=== PATIENT | female | born 1955 | race African-American/Black ===

== ENCOUNTER → 2016-07-17 | Outpatient (CLI) | payer MEDICARE, MEDICAID | LOC: OD 10:42 | PROVIDERS: ATTEND Internal Medicine | DX: D51.9 Vitamin B12 deficiency anemia, unspecified (principal) | CPT/HCPCS: 36415; 82306 ==

== ENCOUNTER 2016-12-12 17:20 | Emergency (ER) | payer MEDICARE, MEDICAID ==
[2016-12-12 17:38] VITALS: BP 137/72
--- NOTE | 2016-12-12 18:21 | ER Document Report ---
HPI - HPI Patient complains to provider of: fall Onset: This afternoon Onset/Duration: Sudden Quality of pain: Achy Pain Level: 3 Context: States that she slipped on algae covered pavement falling on her left hip and shoulder. Patient denies any head injury or loss of consciousness. Associated Symptoms: Other - hip, shoulder pain after fall Exacerbated by: Movement Relieved by: Denies Similar symptoms previously: No Recently seen / treated by doctor: No - ROS ROS below otherwise negative: Yes Systems Reviewed and Negative: Yes All other systems reviewed and negative - NEURO Neurology: DENIES: Headache, Weakness - CARDIOVASCULAR Cardiovascular: DENIES: Chest pain - REPRODUCTIVE Reproductive: DENIES: : - MUSCULOSKELETAL Musculoskeletal: REPORTS: Extremity pain. DENIES: Back Pain, Neck Pain - DERM Skin Color: Normal Skin Problems: None Past Medical History - General Information source: Patient - Social History Smoking Status: Current Some Day Smoker Chew tobacco use (# tins/day): No Frequency of alcohol use: None Drug Abuse: None Occupation: none Lives with: Family Family History: None Patient has suicidal ideation: No Patient has homicidal ideation: No - Past Medical History Cardiac Medical History: Reports: Hx Heart Attack, Hx Hypercholesterolemia, Hx Hypertension Pulmonary Medical History: Reports: Hx Bronchitis Neurological Medical History: Denies: Hx Seizures Endocrine Medical History: Reports: Hx Diabetes Mellitus Type 2 Renal/ Medical History: Denies: Hx Peritoneal Dialysis Musculoskeltal Medical History: Reports Hx Arthritis, Reports Hx Fibromyalgia, Reports Hx Musculoskeletal Deformity, Reports Hx Musculoskeletal Trauma Psychiatric Medical History: Reports: Hx Attention Deficit Hyperactivity Disorder, Hx Depression Traumatic Medical History: Reports: Hx Fractures Past Surgical History: Reports: Hx Appendectomy, Hx Section - x2, Hx Cholecystectomy, Hx Orthopedic Surgery - Bilateral foot surgery - Immunizations Immunizations up to date: Yes Hx Diphtheria, Pertussis, Tetanus Vaccination: Yes Vertical Provider Document - CONSTITUTIONAL Agree With Documented VS: Yes Exam Limitations: No Limitations General Appearance: WD/WN, No Apparent Distress - INFECTION CONTROL TRAVEL OUTSIDE OF THE [place] IN LAST 30 DAYS: No - HEENT HEENT: Atraumatic, Normocephalic - NECK Neck: Normal Inspection, Supple - RESPIRATORY Respiratory: Breath Sounds Normal, No Respiratory Distress O2 Sat by Pulse Oximetry: 100 - CARDIOVASCULAR Cardiovascular: Regular Rate, Regular Rhythm Pulses: Normal: Radial, Posterior tibial, Dorsalis pedis - BACK Back: Normal Inspection. negative: CVA Tenderness-Right, CVA Tenderness-Left Notes: No midline tenderness - MUSCULOSKELETAL/EXTREMETIES Musculoskeletal/Extremeties: MAEW, Tender - Patient with left posterior shoulder joint tenderness, no deformity or dislocation. Patient with left lateral hip tenderness over greater trochanter, deformity or dislocation. - NEURO Level of Consciousness: Awake, Alert, Appropriate Motor/Sensory: No Motor Deficit, No Sensory Deficit - DERM Integumentary: Warm, Dry, No Rash Course - Re-evaluation Re-evalutation: 12/12/16 19:30 Patient crutches, patient states she has some at home. Pt States she is anxious to go home so that she can take her fentanyl patch when she gets there. 12/12/16 19:35 Patient states that her shoulder does not hurt that bad, but her hip does. Pt prefers to use crutches or a walker to assist with walking due to her hip pain. - Vital Signs Vital signs: Temp Pulse Resp BP Pulse Ox 98.5 F 81 16 137/72 H 100 12/12/16 17:37 12/12/16 17:37 12/12/16 17:37 12/12/16 17:37 12/12/16 17:37 - Diagnostic Test Radiology reviewed: Image reviewed, Reports reviewed Discharge - Discharge Clinical Impression: Fall Qualifiers: Encounter type: initial encounter Qualified Code(s): W19.XXXA - Unspecified fall, initial encounter Sprain of shoulder, left Qualifiers: Encounter type: initial encounter Shoulder sprain type: unspecified sprain Qualified Code(s): S43.402A - Unspecified sprain of left shoulder joint, initial encounter Sprain of left hip Qualifiers: Encounter type: initial encounter Qualified Code(s): S73.102A - Unspecified sprain of left hip, initial encounter Condition: Stable Disposition: HOME, SELF-CARE Instructions: Sprain ([facility]), Shoulder Injury ([facility]), Ice & Elevation ([facility]) Additional Instructions: Return immediately for any new or worsening symptoms Followup with your primary care provider, call tomorrow to make a followup appointment Follow-up with orthopedic doctor for any continued pain or problems Prescriptions: Walker [Folding Walker] 1 each MC ASDIR PRN #1 each PRN Reason: Referrals: EDIS ACOSTA MD [Primary Care Provider] - Follow up as needed [facility] [Provider Group] - Follow up as needed
--- NOTE | 2016-12-12 19:25 | RADIOLOGY REPORT (SQ) ---
EXAM DESCRIPTION: SHOULDER LEFT 2 OR MORE VIEWS COMPLETED DATE/TIME: 12/12/2016 6:57 pm REASON FOR STUDY: fall COMPARISON: None. NUMBER OF VIEWS: Three views. TECHNIQUE: Internal rotation, external rotation, and Y view images acquired of the left shoulder. LIMITATIONS: None. FINDINGS: MINERALIZATION: Normal. BONES: No acute fracture or dislocation. No worrisome bone lesions. JOINTS: No dislocation. VISUALIZED LUNGS AND RIBS: No pneumothorax. No rib fracture. SOFT TISSUES: No radiopaque foreign body. OTHER: No other significant finding. IMPRESSION: NEGATIVE STUDY OF THE LEFT SHOULDER. NO RADIOGRAPHIC EVIDENCE OF ACUTE INJURY. TECHNICAL DOCUMENTATION: JOB ID: [id number] [employer]- All Rights Reserved
--- NOTE | 2016-12-12 19:26 | RADIOLOGY REPORT (SQ) ---
EXAM DESCRIPTION: HIP LEFT AP/LATERAL COMPLETED DATE/TIME: 12/12/2016 6:57 pm REASON FOR STUDY: fall COMPARISON: None. NUMBER OF VIEWS: Two views. TECHNIQUE: AP pelvis and additional frog-leg view of the left hip. LIMITATIONS: None. FINDINGS: MINERALIZATION: Normal. LEFT HIP: No fracture or dislocation. No worrisome bone lesions. RIGHT HIP: No fracture or dislocation. No worrisome bone lesions. PUBIS AND ISCHIUM: No fracture. PELVIS: No fracture. SACRUM: No fracture or dislocation. No worrisome bone lesions. LOWER LUMBAR SPINE: No fracture or dislocation. No worrisome bone lesions. No significant disc disea se. SOFT TISSUES: No findings. OTHER: No other significant finding. IMPRESSION: NEGATIVE STUDY OF THE LEFT HIP AND PELVIS. NO RADIOGRAPHIC EVIDENCE OF ACUTE INJURY. TECHNICAL DOCUMENTATION: JOB ID: [id number] [employer]- All Rights Reserved
== END 2016-12-12 19:35 | disposition home or self-care (01) ==
LOC: ER 17:20
DX: S43.402A Unspecified sprain of left shoulder joint, initial encounter (principal); S73.102A Unspecified sprain of left hip, initial encounter; W01.0XXA Fall on same level from slipping, tripping and stumbling without subsequent striking against object, initial encounter; F17.200 Nicotine dependence, unspecified, uncomplicated; I25.2 Old myocardial infarction; I10 Essential (primary) hypertension; E11.9 Type 2 diabetes mellitus without complications
CPT/HCPCS: 99283

== ENCOUNTER → 2016-12-23 | Outpatient (CLI) | payer MEDICARE, MEDICAID ==
[2016-12-23 17:15] LABS: ABSOLUTE EOSINOPHILS # (AUTO) 0.1 10^3/uL (0.0-0.6); ABSOLUTE LYMPHOCYTES (AUTO) 3.8 10^3/uL (0.5-4.7); ABSOLUTE NEUT (AUTO) 5.4 10^3/uL (1.7-8.2); BASOPHILS % (AUTO) 0.2 % (0-2); EOSINOPHILS % (AUTO) 1.2 % (0-6); HEMATOCRIT 46.1 % (36.0-47.0); HEMOGLOBIN 14.9 g/dL (12.0-15.5); HGB HCT DIFFERENCE -1.4; LYMPHOCYTES % (AUTO) 36.4 % (13-45); MEAN CORPUSCULAR HEMOGLOBIN 24.5 pg (27.0-33.4); MEAN CORPUSCULAR HGB CONC 32.3 g/dL (32.0-36.0); MEAN CORPUSCULAR VOLUME 76 fl (80-97); MONOCYTES % (AUTO) 9.6 % (3-13); RED BLOOD COUNT 6.07 10^6/uL (3.72-5.28); RED CELL DISTRIBUTION WIDTH 13.2 % (11.5-14.0); SEGMENTED NEUTROPHILS % (AUTO) 52.6 % (42-78); WHITE BLOOD COUNT 10.3 10^3/uL (4.0-10.5)
[2016-12-23 17:36] LABS: ALANINE AMINOTRANSFERASE 76 U/L (9-52); ALBUMIN 4.4 g/dL (3.5-5.0); ALKALINE PHOSPHATASE 115 U/L (38-126); AMYLASE 57 U/L (30-110); ANION GAP 11 (5-19); ASPARTATE AMINO TRANSFERASE 47 U/L (14-36); BILIRUBIN,DIRECT 0.4 mg/dL (0.0-0.4); BILIRUBIN,TOTAL 0.5 mg/dL (0.2-1.3); BLOOD UREA NITROGEN 19 mg/dL (7-20); CALCIUM 11.3 mg/dL (8.4-10.2); CARBON DIOXIDE 29 mmol/L (22-30); CHLORIDE 98 mmol/L (98-107); CREATININE RESULT 0.47 mg/dL (0.52-1.25); GLUCOSE 82 mg/dL (75-110); POTASSIUM 5.3 mmol/L (3.6-5.0); SODIUM 138.3 mmol/L (137-145)
== END ==
LOC: OD 16:10
PROVIDERS: ATTEND Internal Medicine
DX: R11.10 Vomiting, unspecified (principal); R63.4 Abnormal weight loss; E11.9 Type 2 diabetes mellitus without complications; R10.9 Unspecified abdominal pain; Z79.899 Other long term (current) drug therapy
CPT/HCPCS: 36415; 80053; 82150; 83690; 85025

== ENCOUNTER → 2017-01-02 | Outpatient (CLI) | payer MEDICARE, MEDICAID ==
[2017-01-02 16:55] LABS: CALCIUM 10.2 mg/dL (8.4-10.2); POTASSIUM 3.6 mmol/L (3.6-5.0)
[2017-01-04 19:03] LABS: HEPATITIS C VIRUS AB <0.1 s/co ratio (0.0-0.9)
== END ==
LOC: OD 15:14
PROVIDERS: ATTEND Internal Medicine
DX: E83.52 Hypercalcemia (principal); E87.0 Hyperosmolality and hypernatremia; R74.8 Abnormal levels of other serum enzymes
CPT/HCPCS: 36415; 82310; 84132; 86803; 86804

== ENCOUNTER 2017-04-05 18:53 | Emergency (ER) | payer MEDICARE, MEDICAID ==
[2017-04-05] MEDS ORDERED: HYDROXYZINE HCL INJ 50 MG/1 ML VIAL IM ONE (19:24)
--- NOTE | 2017-04-05 19:25 | ER Document Report ---
ED General - General Chief Complaint: Pelvic Pain Stated Complaint: POSSIBLE INTERNAL SPASMS Time Seen by Provider: 04/05/17 19:15 Notes: Patient is a 61 year old female who presents to the ED complaining of pelvic cramps that she has had on/off for one year due to the fact that she is not sexually active and does not masturbate. She denies any fevers, chills, vaginal discharge, discomfort, pyuria hematuria takes vistaril at home which has relieved her symptoms in the past TRAVEL OUTSIDE OF THE [place] IN LAST 30 DAYS: No - Related Data Allergies/Adverse Reactions: promethazine HCl [From Phenergan] Allergy (Severe, Verified 01/16/16 21:53) Past Medical History - Social History Smoking Status: Current Some Day Smoker Frequency of alcohol use: None Drug Abuse: None Family History: None - Past Medical History Cardiac Medical History: Reports: Hx Heart Attack, Hx Hypercholesterolemia, Hx Hypertension Pulmonary Medical History: Reports: Hx Bronchitis Neurological Medical History: Denies: Hx Seizures Endocrine Medical History: Reports: Hx Diabetes Mellitus Type 2 Renal/ Medical History: Denies: Hx Peritoneal Dialysis Musculoskeltal Medical History: Reports Hx Arthritis, Reports Hx Fibromyalgia, Reports Hx Musculoskeletal Deformity, Reports Hx Musculoskeletal Trauma Psychiatric Medical History: Reports: Hx Attention Deficit Hyperactivity Disorder, Hx Depression Traumatic Medical History: Reports: Hx Fractures Past Surgical History: Reports: Hx Appendectomy, Hx Section - x2, Hx Cholecystectomy, Hx Orthopedic Surgery - Bilateral foot surgery - Immunizations Immunizations up to date: Yes Hx Diphtheria, Pertussis, Tetanus Vaccination: Yes Review of Systems - Review of Systems Constitutional: No symptoms reported Female Genitourinary: See HPI -: Yes All other systems reviewed and negative Physical Exam - Vital signs Vitals: Temp Pulse Resp BP Pulse Ox 98.2 F 112 H 18 152/102 H 100 04/05/17 19:00 04/05/17 19:00 04/05/17 19:00 04/05/17 19:00 04/05/17 19:00 - Notes Notes: PHYSICAL EXAM GENERAL: Alert, interacts well. ABDOMEN: Soft, nondistended, nontender. No guarding, rebound, or rigidity.. Bowel sounds present in all 4 quadrants. FEMALE : Normal external exam. No evidence of lesions, lacerations, bruising or vesicles. Speculum exam normal cervix closed. No evidence of vaginal discharge with odor. No evidence of lesions. No vaginal bleeding. Bimanual exam normal no cervical motion tenderness. No adnexal mass or adnexal tenderness. EXTREMITIES: Moves all 4 extremities spontaneously. No edema, radial and dorsalis pedis pulses 2/4 bilaterally. No cyanosis. NEUROLOGICAL: Alert and oriented x4. Normal speech. PSYCH: Normal affect, normal mood. SKIN: Warm, dry, normal turgor. No rashes or lesions noted. Course - Re-evaluation Re-evalutation: 04/05/17 22:38 Patient is a 61-year-old female who is hemodynamically stable, no acute distress and afebrile. Patient's presentation today consistent with pelvic cramping. Symptoms improved after medications administered at the bedside. Patient denies any pain at this time. Pelvic exam benign. No evidence of pelvic inflammatory disease. Urinalysis clean without any evidence of UTI. Given that patient has had symptoms for 1 year, discussed with her to follow-up with her primary care doctor. Do not feel that any additional lab or imaging studies are required for this chronic complaint. Patient and family agree with plan. - Vital Signs Vital signs: Temp Pulse Resp BP Pulse Ox 98.8 F 100 18 139/75 H 100 04/05/17 22:52 04/05/17 22:52 04/05/17 22:52 04/05/17 22:52 04/05/17 22:52 Discharge - Discharge Clinical Impression: Pelvic pain Condition: Good Disposition: HOME, SELF-CARE Additional Instructions: Given that your symptoms are chronic and have been going on for one year, there is no indication to do additional testing in the ER Please follow up with your primary care doctor
[2017-04-05] MEDS ORDERED: DIAZEPAM INJ 10 MG/2 ML DISP.SYRIN IM ONE (20:17)
[2017-04-05 21:54] LABS: APPEARANCE,URINE CLEAR; BILIRUBIN,URINE NEGATIVE (NEGATIVE); GLUCOSE, URINE NEGATIVE (NEGATIVE); KETONES,URINE NEGATIVE (NEGATIVE); LEUKOCYTE ESTERASE,URINE NEGATIVE (NEGATIVE); NITRITE,URINE NEGATIVE (NEGATIVE); PROTEIN,URINE NEGATIVE (NEGATIVE); URINE SPECIFIC GRAVITY 1.003; UROBILINOGEN,URINE NEGATIVE mg/dL (<2.0)
[2017-04-05 22:54] VITALS: BP 139/75
[2017-04-05 23:54] LABS: CHLAM PCR NOT DETECTED (NOT DETECT)
== END 2017-04-05 22:51 | disposition home or self-care (01) ==
LOC: ER 18:53
DX: R10.2 Pelvic and perineal pain (principal); I10 Essential (primary) hypertension; I25.2 Old myocardial infarction; E11.9 Type 2 diabetes mellitus without complications; Z79.899 Other long term (current) drug therapy; Z88.8 Allergy status to other drugs, medicaments and biological substances; Z90.49 Acquired absence of other specified parts of digestive tract
CPT/HCPCS: 99284; 96372; 87210; 81001; 87491; 87591; J3360; J3490

== ENCOUNTER 2017-05-19 18:52 | Emergency (ER) | payer MEDICARE, MEDICAID ==
[2017-05-19 19:39] VITALS: BP 159/83
== END 2017-05-19 22:20 | disposition left against medical advice (07) ==
LOC: ER 18:52
DX: Z53.9 Procedure and treatment not carried out, unspecified reason (principal); N63.0 Unspecified lump in unspecified breast

== ENCOUNTER 2017-08-23 11:43 | Emergency (ER) | payer OTHER, MEDICARE, MEDICAID ==
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
[2017-08-23 12:58] VITALS: BP 134/78
== END 2017-08-23 12:57 | disposition home or self-care (01) ==
LOC: ER 11:43
DX: T14.8XXA Other injury of unspecified body region, initial encounter (principal); S00.93XA Contusion of unspecified part of head, initial encounter; R51 Headache; M54.2 Cervicalgia; R07.9 Chest pain, unspecified; V49.40XA Driver injured in collision with unspecified motor vehicles in traffic accident, initial encounter; I10 Essential (primary) hypertension; I25.2 Old myocardial infarction; E11.9 Type 2 diabetes mellitus without complications; F17.200 Nicotine dependence, unspecified, uncomplicated; G89.29 Other chronic pain; Z79.891 Long term (current) use of opiate analgesic; Z88.8 Allergy status to other drugs, medicaments and biological substances
CPT/HCPCS: 99283

== ENCOUNTER → 2017-09-12 | Outpatient (CLI) | payer MEDICARE, MEDICAID ==
[2017-09-12 10:20] LABS: ABSOLUTE EOSINOPHILS # (AUTO) 0.2 10^3/uL (0.0-0.6); ABSOLUTE LYMPHOCYTES (AUTO) 2.6 10^3/uL (0.5-4.7); ABSOLUTE MONOCYTES (AUTO) 0.6 10^3/uL (0.1-1.4); ABSOLUTE NEUT (AUTO) 5.2 10^3/uL (1.7-8.2); BASOPHILS % (AUTO) 0.4 % (0-2); EOSINOPHILS % (AUTO) 2.2 % (0-6); HEMATOCRIT 43.5 % (36.0-47.0); LYMPHOCYTES % (AUTO) 30.6 % (13-45); MEAN CORPUSCULAR HEMOGLOBIN 23.9 pg (27.0-33.4); MEAN CORPUSCULAR HGB CONC 32.2 g/dL (32.0-36.0); MEAN CORPUSCULAR VOLUME 74 fl (80-97); MONOCYTES % (AUTO) 6.5 % (3-13); PLATELET COUNT 178 10^3/uL (150-450); RED BLOOD COUNT 5.87 10^6/uL (3.72-5.28); RED CELL DISTRIBUTION WIDTH 15.1 % (11.5-14.0); SEGMENTED NEUTROPHILS % (AUTO) 60.3 % (42-78); TOTAL CELLS COUNTED % (AUTO) 100 %; WHITE BLOOD COUNT 8.6 10^3/uL (4.0-10.5)
[2017-09-12 10:58] LABS: FREE T4 (FREE THYROXINE) 3.74 ng/dL (0.78-2.19)
[2017-09-12 11:13] LABS: THYROID STIMULATING HORMONE < 0.01 uIU/mL (0.47-4.68)
== END ==
LOC: DACC 09:23
PROVIDERS: ATTEND Physician Assistant Medical
DX: L21.8 Other seborrheic dermatitis (principal); L65.9 Nonscarring hair loss, unspecified
CPT/HCPCS: 36415; 82728; 84439; 84443; 85025

== ENCOUNTER 2017-12-20 14:02 | Emergency (ER) | payer MEDICARE, MEDICAID ==
[2017-12-20 14:12] VITALS: BP 127/65
--- NOTE | 2017-12-20 14:20 | ER Document Report ---
HPI - HPI Patient complains to provider of: right forearm rash Onset: Other - several days Pain Level: 4 Context: 62 yo female with rash right forearm for several days, thought maybe it was insect bites, itches, now coalesced indurated vesicular. Associated Symptoms: None Exacerbated by: Denies Relieved by: Denies - ROS ROS below otherwise negative: Yes Systems Reviewed and Negative: Yes All other systems reviewed and negative - REPRODUCTIVE Reproductive: DENIES: : Past Medical History - General Information source: Patient - Social History Smoking Status: Former Smoker Frequency of alcohol use: None Drug Abuse: None Lives with: Family Family History: None, Reviewed & Not Pertinent - Past Medical History Cardiac Medical History: Reports: Hx Heart Attack, Hx Hypercholesterolemia, Hx Hypertension Pulmonary Medical History: Reports: Hx Bronchitis Neurological Medical History: Denies: Hx Seizures Endocrine Medical History: Reports: Hx Diabetes Mellitus Type 2 Renal/ Medical History: Denies: Hx Peritoneal Dialysis Musculoskeltal Medical History: Reports Hx Arthritis, Reports Hx Fibromyalgia, Reports Hx Musculoskeletal Deformity, Reports Hx Musculoskeletal Trauma Psychiatric Medical History: Reports: Hx Attention Deficit Hyperactivity Disorder, Hx Depression Traumatic Medical History: Reports: Hx Fractures Past Surgical History: Reports: Hx Appendectomy, Hx Section - x2, Hx Cholecystectomy, Hx Orthopedic Surgery - Bilateral foot surgery, total of 5 surgeries - Immunizations Immunizations up to date: Yes Hx Diphtheria, Pertussis, Tetanus Vaccination: Yes Vertical Provider Document - CONSTITUTIONAL Agree With Documented VS: Yes Exam Limitations: No Limitations General Appearance: No Apparent Distress - INFECTION CONTROL TRAVEL OUTSIDE OF THE [place] IN LAST 30 DAYS: No - NEURO Level of Consciousness: Awake - DERM Integumentary: Rash - indurated vesicular coalesced right dorsal forearm rash, no pus or warmth. Course - Vital Signs Vital signs: Temp Pulse Resp BP Pulse Ox 98.8 F 88 20 127/65 H 96 12/20/17 14:11 12/20/17 14:11 12/20/17 14:11 12/20/17 14:11 12/20/17 14:11 Discharge - Discharge Clinical Impression: Right forearm rash Condition: Good Disposition: HOME, SELF-CARE Instructions: Cephalexin ([facility]), Topical Steroid Cream or Ointment ([facility]) Additional Instructions: Nonstick dressing Keep it covered with Coban while you are at work Steroid cream 3 times a day Antibiotics for a week See the warp picker for follow-up Prescriptions: Cephalexin Monohydrate [Keflex 500 mg Capsule] 500 mg PO QID #28 capsule Hydrocortisone [Hydrocortisone 1% Cream 28.35 gm] 1 applic TP TID #1 tube Referrals: ELLIOTT BRYANT DO [ACTIVE STAFF] - Follow up in 3-5 days
== END 2017-12-20 14:31 | disposition home or self-care (01) ==
LOC: ER 14:02
DX: R21 Rash and other nonspecific skin eruption (principal); I10 Essential (primary) hypertension; E11.9 Type 2 diabetes mellitus without complications; Z87.891 Personal history of nicotine dependence
CPT/HCPCS: 99282

== ENCOUNTER 2018-02-08 23:51 | Emergency (ER) | payer MEDICARE, MEDICAID ==
[2018-02-09 01:42] LABS: APPEARANCE,URINE CLEAR; BILIRUBIN,URINE NEGATIVE (NEGATIVE); COLOR,URINE COLORLESS; GLUCOSE, URINE NEGATIVE (NEGATIVE); KETONES,URINE NEGATIVE (NEGATIVE); LEUKOCYTE ESTERASE,URINE NEGATIVE (NEGATIVE); NITRITE,URINE NEGATIVE (NEGATIVE); PROTEIN,URINE NEGATIVE (NEGATIVE); URINE SPECIFIC GRAVITY 1.005; UROBILINOGEN,URINE NEGATIVE mg/dL (<2.0)
[2018-02-09 01:43] LABS: ABSOLUTE BASOPHILS # (AUTO) 0.1 10^3/uL (0.0-0.2); ABSOLUTE EOSINOPHILS # (AUTO) 0.1 10^3/uL (0.0-0.6); ABSOLUTE LYMPHOCYTES (AUTO) 3.5 10^3/uL (0.5-4.7); ABSOLUTE NEUT (AUTO) 5.7 10^3/uL (1.7-8.2); BASOPHILS % (AUTO) 0.6 % (0-2); EOSINOPHILS % (AUTO) 1.1 % (0-6); HEMATOCRIT 44.5 % (36.0-47.0); HEMOGLOBIN 14.9 g/dL (12.0-15.5); LYMPHOCYTES % (AUTO) 34.1 % (13-45); MEAN CORPUSCULAR HEMOGLOBIN 27.1 pg (27.0-33.4); MEAN CORPUSCULAR HGB CONC 33.4 g/dL (32.0-36.0); MEAN CORPUSCULAR VOLUME 81 fl (80-97); MONOCYTES % (AUTO) 9.6 % (3-13); PLATELET COUNT 166 10^3/uL (150-450); RED BLOOD COUNT 5.49 10^6/uL (3.72-5.28); RED CELL DISTRIBUTION WIDTH 15.6 % (11.5-14.0); SEGMENTED NEUTROPHILS % (AUTO) 54.6 % (42-78); TOTAL CELLS COUNTED % (AUTO) 100 %; WHITE BLOOD COUNT 10.4 10^3/uL (4.0-10.5)
--- NOTE | 2018-02-09 02:01 | RADIOLOGY REPORT (SQ) ---
EXAM DESCRIPTION: XR CHEST 1 VIEW COMPLETED DATE/TME: 02/09/2018 01:14 CLINICAL HISTORY: 62 years Female, altered mental status COMPARISON: June 29, 2015. NUMBER OF VIEWS/TECHNIQUE: 1/AP FINDINGS: Adequate lung volume, clear parenchyma, normal cardiac silhouette, atherosclerosis, right upper abdominal clips, and intact bony thorax. IMPRESSION: No acute cardiopulmonary findings.
--- NOTE | 2018-02-09 02:08 | RADIOLOGY REPORT (SQ) ---
EXAM DESCRIPTION: CT HEAD WITHOUT IV CONTRAST COMPLETED DATE/TME: 02/09/2018 01:13 CLINICAL HISTORY: 62 years Female, altered mental status COMPARISON: 3.8.18 TECHNIQUE: No contrast. Axial images only. This exam was performed according to our departmental dose-optimization program, which includes automated exposure control, adjustment of the mA and/or kV according to patient size and/or use of iterative reconstruction technique. FINDINGS: No hemorrhage or infarct. No mass, mass effect, or midline shift. Mild white matter microangiopathy. Brain and extra-axial structures appear intact. IMPRESSION: No acute findings. CT of the head.
[2018-02-09 02:16] LABS: ALANINE AMINOTRANSFERASE 60 U/L (9-52); ALBUMIN 4.1 g/dL (3.5-5.0); ALKALINE PHOSPHATASE 178 U/L (38-126); ANION GAP 11 (5-19); ASPARTATE AMINO TRANSFERASE 52 U/L (14-36); BILIRUBIN,DIRECT 0.3 mg/dL (0.0-0.4); BILIRUBIN,TOTAL 0.4 mg/dL (0.2-1.3); BLOOD UREA NITROGEN 18 mg/dL (7-20); CALCIUM 10.5 mg/dL (8.4-10.2); CARBON DIOXIDE 25 mmol/L (22-30); CHLORIDE 108 mmol/L (98-107); GLUCOSE 95 mg/dL (75-110); POTASSIUM 3.9 mmol/L (3.6-5.0); SODIUM 143.5 mmol/L (137-145)
--- NOTE | 2018-02-09 02:28 | ER Document Report ---
ED General - General Chief Complaint: Other Stated Complaint: DECREASED MENTAL STATUS Time Seen by Provider: 02/08/18 23:58 Notes: Patient is a 62-year-old female presents with complaints of altered mental status. She strike and altered mental status after taking her medications tonight. She recently just had her Ambien increased from 6 mg 12 mg. She herself thinks that she also may have taken another extra dose of Ambien because she put aside medications for vacation may have gotten mixed up therefore she thinks she may have taken 1 of her 6 mg ambiens as well as 1 of her new 12 mg ambulance for a total of 18 mg. Patient is sleepy and somnolent. She is ataxic. She denies any focal weakness or numbness. She complains more of global weakness. Family says at home she was slurring her words and not making sense. She is now talking little bit more clearly than she was at home. She did says that she did have a headache but said this occurred after hitting her head against the door frame when she was stumbling. She did not have a headache before hitting her head against a door frame. She denies any fevers. No vomiting. No abdominal pain. No other complaints at this time. TRAVEL OUTSIDE OF THE [place] IN LAST 30 DAYS: No - Related Data Allergies/Adverse Reactions: promethazine HCl [From Phenergan] Allergy (Severe, Verified 12/20/17 14:04) morphine Allergy (Verified 12/20/17 14:04) Past Medical History - Social History Smoking Status: Unknown if Ever Smoked Frequency of alcohol use: None Drug Abuse: None Family History: None, Reviewed & Not Pertinent - Past Medical History Cardiac Medical History: Reports: Hx Heart Attack, Hx Hypercholesterolemia, Hx Hypertension Pulmonary Medical History: Reports: Hx Bronchitis Neurological Medical History: Denies: Hx Seizures Endocrine Medical History: Reports: Hx Diabetes Mellitus Type 2 Renal/ Medical History: Denies: Hx Peritoneal Dialysis Musculoskeletal Medical History: Reports Hx Arthritis, Reports Hx Fibromyalgia, Reports Hx Musculoskeletal Deformity, Reports Hx Musculoskeletal Trauma Psychiatric Medical History: Reports: Hx Attention Deficit Hyperactivity Disorder, Hx Depression Traumatic Medical History: Reports: Hx Fractures Past Surgical History: Reports: Hx Appendectomy, Hx Section - x2, Hx Cholecystectomy, Hx Orthopedic Surgery - Bilateral foot surgery, total of 5 surgeries - Immunizations Immunizations up to date: Yes Hx Diphtheria, Pertussis, Tetanus Vaccination: Yes Review of Systems - Review of Systems Notes: My Normal Review Basic REVIEW OF SYSTEMS: CONSTITUTIONAL : Denies fever, chills, or sweats. Denies recent illness. EENT: Denies eye, ear, throat, or mouth pain or symptoms. Denies nasal or sinus congestion. CARDIOVASCULAR: Denies chest pain. RESPIRATORY: Denies cough, cold, or chest congestion. Denies shortness of breath, difficulty breathing, or wheezing. GASTROINTESTINAL: Denies abdominal pain. Denies nausea, vomiting, or diarrhea. GENITOURINARY: Denies difficulty urinating, painful urination, burning, frequency, or blood in urine. MUSCULOSKELETAL: Denies neck or back pain or joint pain or swelling. SKIN: Denies rash or skin lesions. NEUROLOGICAL: Altered mental status. Had a headache. Denies weakness or paralysis or loss of use of either side. Difficulty ambulating. Denies sensory or motor loss. PSYCHIATRIC: Denies anxiety or stress or depression. ALL OTHER SYSTEMS REVIEWED AND NEGATIVE. Physical Exam - Vital signs Vitals: Temp Pulse Resp BP Pulse Ox 97.8 F 87 15 155/84 H 97 02/09/18 03:38 02/09/18 03:38 02/09/18 03:38 02/09/18 03:38 02/09/18 03:38 - Notes Notes: General Appearance: Well nourished, alert, cooperative, no acute distress, no obvious discomfort. Well-appearing. Vitals: reviewed, See vital signs table. Head: no swelling or tenderness to the head Eyes: PERRL, EOMI, Conjuctiva clear Mouth: No decreasd moisture Lungs: No wheezing, No rales, No rhonci, No accessory muscle use, good air exchange bilaterally. Heart: Normal rate, Regular rythm, No murmur, no rub Abdomen: Normal BS, soft, No rigidity, No abdominal tenderness, No guarding, no rebound, Extremities: strength 5/5 in all extremities, good pulses in all extremities, no swelling or tenderness in the extremities, no edema. Skin: warm, dry, appropriate color, no rash Neuro: speech clear, oriented x 3, normal affect, responds appropriately to questions. Patient has been slightly slurred speech and she is a little bit somnolent but she is able to stay awake and answer questions. Her gait is ataxic and she is stumbling and to the wall when she is walking back from the bathroom. She is being assisted by the staff so that she does not fall. She does not have any focal weakness or numbness. She is just globally weak. Presentation is pretty consistent with that of an Ambien overdose. Course - Re-evaluation Re-evalutation: 02/09/18 06:33 Patient's mental status is completely cleared. She is speaking normally. She is fully awake and alert. She still just has slightly ataxic gait. I encouraged her to stay until her gait resolves to make sure that this does resolve and does not worsen again so that we can be sure that this is related to the Ambien. Patient refused to stay and says she wants to leave. I informed her that she really needs to come back if her gait has not completely come back to normal by this morning. Patient said she will. I encourage her to only take her old dose of 6.25 mg the Ambien. Patient seems pretty adamant that she wants to continue take the 12 mg she says a 6 mg does not help her sleep. She is pretty sure that she actually took 18 mg. I am concerned if she goes back 12 mg that this will happen again. I again encourage patient to only take the 6 mg tablets in the follow-up closely with her primary care doctor. Patient's family members at bedside and heard the entire conversation. Patient is awake and alert answering all questions appropriately. She at this time does not appear to lack capacity to make her own decisions and therefore I cannot hold her against her will. Patient will be discharged she requests but does agree to return to ER immediately if she has any recurrence of her symptoms or for gait does not return completely to normal by this morning. Dictation of this chart was performed using voice recognition software; therefore, there may be some unintended grammatical errors. - Vital Signs Vital signs: Temp Pulse Resp BP Pulse Ox 97.8 F 87 15 155/84 H 97 02/09/18 03:38 02/09/18 03:38 02/09/18 03:38 02/09/18 03:38 02/09/18 03:38 - Laboratory Result Diagrams: 02/09/18 01:29 02/09/18 01:29 Laboratory results interpreted by me: 02/09/18 02/09/18 01:29 01:29 RBC 5.49 H RDW 15.6 H Chloride 108 H Creatinine 0.38 L Calcium 10.5 H AST 52 H ALT 60 H Alkaline Phosphatase 178 H - EKG Interpretation by Me Additional EKG results interpreted by me: 02/09/18 02:23 EKG is reviewed and interpreted by me. EKG shows sinus rhythm with rate of [address] segment elevation or depression. No ischemic T wave inversions. WV interval, QRS duration, QTc intervals are within normal range. Discharge - Discharge Clinical Impression: Altered mental status Qualifiers: Altered mental status type: unspecified Qualified Code(s): R41.82 - Altered mental status, unspecified Overdose Qualifiers: Encounter type: initial encounter Injury intent: accidental or unintentional Qualified Code(s): T50.901A - Poisoning by unspecified drugs, medicaments and biological substances, accidental (unintentional), initial encounter Condition: Good Disposition: HOME, SELF-CARE Additional Instructions: Please consider taking only 6mg of the Ambien. Please return to the ER immediately if you have recurrence of confusion or feel unwell. You gait should be back to normal by this morning. You must return to the ER for reevaluation if you are not walking completely normal by 8am this morning. Referrals: GERMAIN PHILLIPS, [Primary Care Provider] - Follow up tomorrow
[2018-02-09 03:51] VITALS: BP 155/84
--- NOTE | 2018-02-09 06:14 | EKG REPORT ---
SEVERITY:- BORDERLINE ECG - SINUS RHYTHM PROBABLE LEFT ATRIAL ABNORMALITY : Confirmed by: Levi Carmona MD 09-Feb-2018 06:13:12
== END 2018-02-09 03:52 | disposition home or self-care (01) ==
LOC: ER 23:51
DX: T50.901A Poisoning by unspecified drugs, medicaments and biological substances, accidental (unintentional), initial encounter (principal); X58.XXXA Exposure to other specified factors, initial encounter; R41.82 Altered mental status, unspecified; E78.00 Pure hypercholesterolemia, unspecified; I10 Essential (primary) hypertension; E11.9 Type 2 diabetes mellitus without complications; Z88.6 Allergy status to analgesic agent; I25.2 Old myocardial infarction; Z90.49 Acquired absence of other specified parts of digestive tract
CPT/HCPCS: 36415; 70450; 71045; 80053; 81001; 85025; 93005; 93010; 99285

== ENCOUNTER 2018-04-26 12:23 | Emergency (ER) | payer OTHER, MEDICARE, MEDICAID ==
[2018-04-26 12:29] VITALS: BP 140/80
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
--- NOTE | 2018-04-26 16:18 | RADIOLOGY REPORT (SQ) ---
EXAM DESCRIPTION: CT HEAD WITHOUT COMPLETED DATE/TIME: 04/26/2018 3:38 pm REASON FOR STUDY: recurrent montemayor's COMPARISON: 02/09/2018 TECHNIQUE: Axial images acquired through the brain without intravenous contrast. Images reviewed wi th bone, brain and subdural windows. Images stored on PACS. All CT scanners at this facility use dose modulation, iterative reconstruction, and/or weight based d osing when appropriate to reduce radiation dose to as low as reasonably achievable (ALARA). [facility]: Dose Right [facility]: CareDose [facility]: Dose Right [facility]: Teradose 4D [facility]: Smart Tradeshift RADIATION DOSE: CT Rad equipment meets quality standard of care and radiation dose reduction techniq ues were employed. CTDIvol: 53.2 mGy. DLP: 1044 mGy-cm.mGy. LIMITATIONS: None. FINDINGS: VENTRICLES: Prominent. CEREBRUM: No masses. No hemorrhage. No midline shift. Areas of low density in the white matter mos t likely due to chronic micro-vascular ischemic change. No evidence for acute infarction. CEREBELLUM: No masses. No hemorrhage. No alteration of density. No evidence for acute infarction. EXTRAAXIAL SPACES: Age-related involutional change. No fluid collections. No masses. ORBITS AND GLOBE: No intra- or extraconal masses. Normal contour of globe without masses. CALVARIUM: No fracture. PARANASAL SINUSES: No fluid or mucosal thickening. SOFT TISSUES: No mass or hematoma. OTHER: No other significant finding. IMPRESSION: No acute intracranial findings. EVIDENCE OF ACUTE STROKE: NO. TECHNICAL DOCUMENTATION: JOB ID: [id number] [place]-[id number] Quality ID # [id number]: Final reports with documentation of one or more dose reduction techniques (e.g., Au tomated exposure control, adjustment of the mA and/or kV according to patient size, use of iterative reconstruction technique) 2010 [email or web address]- All Rights Reserved Reading location - IP/workstation name: [employer]
--- NOTE | 2018-04-26 17:43 | RADIOLOGY REPORT (SQ) ---
EXAM DESCRIPTION: KNEE LEFT 3 VIEWS COMPLETED DATE/TIME: 04/26/2018 4:15 pm REASON FOR STUDY: left knee x-ray COMPARISON: None. EXAM PARAMETERS: NUMBER OF VIEWS: Three views. TECHNIQUE: AP, lateral and oblique radiographic images acquired of the left knee. LIMITATIONS: None. FINDINGS: MINERALIZATION: Normal. BONES: No acute fracture or dislocation. No worrisome bone lesions. JOINTS: No effusion. SOFT TISSUES: Mild anterior soft tissue swelling. No radiopaque foreign body. OTHER: No other significant finding. IMPRESSION: NO FRACTURE. TECHNICAL DOCUMENTATION: JOB ID: [id number] [place]-[id number] 2010 [employer]- All Rights Reserved Reading location - IP/workstation name: [email or web address]
== END 2018-04-26 17:33 | disposition home or self-care (01) ==
LOC: ER 12:23
DX: S86.912A Strain of unspecified muscle(s) and tendon(s) at lower leg level, left leg, initial encounter (principal); S06.0X9A Concussion with loss of consciousness of unspecified duration, initial encounter; V89.2XXA Person injured in unspecified motor-vehicle accident, traffic, initial encounter; Z88.6 Allergy status to analgesic agent; I25.2 Old myocardial infarction; E78.00 Pure hypercholesterolemia, unspecified; I10 Essential (primary) hypertension; E11.9 Type 2 diabetes mellitus without complications; Z90.49 Acquired absence of other specified parts of digestive tract
CPT/HCPCS: 70450; 99284

== ENCOUNTER 2018-06-27 08:22 | Emergency (ER) | payer MEDICARE, MEDICAID ==
[2018-06-27] MEDS ORDERED: HYDROMORPHONE HCL INJ/PF 2 MG/ML AMPULE IV ONE (09:11)
[2018-06-27] MEDS ORDERED: ONDANSETRON HCL INJ/PF 4 MG/2 ML SDV IV ONE (09:11)
[2018-06-27] MEDS ORDERED: NORMAL SALINE 1000 ML 1,000 ML IV ONE (09:11)
--- NOTE | 2018-06-27 09:11 | ER Document Report ---
ED General - General Chief Complaint: Flank Pain Stated Complaint: SIDE PAIN Time Seen by Provider: 06/27/18 08:59 Notes: Patient is a 63-year-old female that presents to the emergency department for chief complaint of abdominal pain. Patient states the pain started 2 days ago, and has been persistent and seemingly worsening over time. The pain is located left flank and radiating towards the front, and they currently rate the pain as a 9 out of 10, and described as aching, and constant. They have had associated nausea, but no vomiting, denies any fevers, chills, night sweats, chest pain, shortness of breath or difficulty breathing. She states the pain will intermittently get very sharp, and worse in intensity and then will wax and wane off. Denies prior history of kidney stones in the past, denies having any dysuria or hematuria.. Past Medical History: Diabetes, diet-controlled, hypertension, chronic pain Past Surgical History: Cholecystectomy, appendectomy, tonsillectomy, x2 Social History: Denies tobacco, alcohol or drug use. Family History: Reviewed and noncontributory for presenting illness Allergies: Reviewed, see documented allergy list. REVIEW OF SYSTEMS: Other than noted above, the 12 point review of systems was reviewed with the patient and were negative, all pertinent findings are included in the HPI. PHYSICAL EXAMINATION: Vital signs reviewed, nursing noted reviewed. GENERAL: Well-appearing, well-nourished and appears uncomfortable HEAD: Atraumatic, normocephalic. EYES: Eyes appear normal, extraocular movements intact, sclera anicteric, conjunctiva are normal. ENT: nares patent, oropharynx clear without exudates. Moist mucous membranes. NECK: Normal range of motion, supple without lymphadenopathy LUNGS: Breath sounds clear to auscultation bilaterally and equal. No wheezes rales or rhonchi. HEART: Regular rate and rhythm without murmurs ABDOMEN: Soft, left CVA tenderness with palpation, no anterior abdominal tenderness normal bowel sounds, tenderness with palpation, No rebound, guarding, or rigidity. No masses appreciated. EXTREMITIES: Nontender, good range of motion, no pitting or edema. NEUROLOGICAL: No focal neurological deficits. Moves all extremities spo ntaneously Motor and sensory grossly intact on exam. PSYCH: Normal mood, normal affect. SKIN: Warm, Dry, normal turgor, no rashes or lesions noted on exposed skin TRAVEL OUTSIDE OF THE [place] IN LAST 30 DAYS: No - Related Data Allergies/Adverse Reactions: promethazine HCl [From Phenergan] Allergy (Severe, Verified 06/27/18 08:24) morphine Allergy (Verified 06/27/18 08:24) Past Medical History - Social History Smoking Status: Never Smoker Family History: None, Reviewed & Not Pertinent - Past Medical History Cardiac Medical History: Reports: Hx Heart Attack - 1998, Hx Hypercholesterolemia, Hx Hypertension Pulmonary Medical History: Reports: Hx Bronchitis Neurological Medical History: Denies: Hx Seizures Endocrine Medical History: Reports: Hx Diabetes Mellitus Type 2 Renal/ Medical History: Denies: Hx Peritoneal Dialysis Musculoskeletal Medical History: Reports Hx Arthritis, Reports Hx Fibromyalgia, Reports Hx Musculoskeletal Deformity, Reports Hx Musculoskeletal Trauma Psychiatric Medical History: Reports: Hx Attention Deficit Hyperactivity Disorder, Hx Depression Traumatic Medical History: Reports: Hx Fractures Past Surgical History: Reports: Hx Appendectomy, Hx Cardiac Surgery - 1 stent after [place], Hx Section - x2, Hx Cholecystectomy, Hx Orthopedic Surgery - Bilateral foot surgery, total of 5 surgeries - Immunizations Immunizations up to date: Yes Hx Diphtheria, Pertussis, Tetanus Vaccination: Yes Physical Exam - Vital signs Vitals: Temp Pulse Resp BP Pulse Ox 97.9 F 78 16 150/75 H 98 06/27/18 08:30 06/27/18 08:30 06/27/18 08:30 06/27/18 08:30 06/27/18 08:30 Course - Re-evaluation Re-evalutation: Patient seen and examined vital signs reviewed. Laboratory data and imaging were ordered as appropriate for the patient's presenting symptoms and complaint, with consideration of any critical or life threatening conditions that may be associated with their obtained history and exam as noted above. Patient was treated with IV fluids, Zofran, and Dilaudid Results were reviewed when available and demonstrated negative CT imaging, blood work was grossly unremarkable as well The patient was re-evaluated and was stable, was eating and tolerating p.o. in the emergency department. Evaluation was most consistent with constipation, abdominal pain Results were discussed with the patient at this point, after careful consideration I feel that that patient can be discharged from the emergency department, the patient was educated treatments and reasons to return to the emergency department based on their presumed diagnosis as noted above, they were advised to followup with a primary care physician in 2-3 days. Patient was agreeable to plan of care. *Note is created using voice recognition software and may contain spelling, syn tax or grammatical errors. Laboratory 06/27/18 06/27/18 06/27/18 09:44 09:44 10:12 WBC Cancelled RBC Cancelled Hgb Cancelled Hct Cancelled MCV Cancelled MCH Cancelled MCHC Cancelled RDW Cancelled Plt Count Cancelled Seg Neutrophils % Cancelled Lymphocytes % Cancelled Monocytes % Cancelled Eosinophils % Cancelled Basophils % Cancelled Absolute Neutrophils Cancelled Absolute Lymphocytes Cancelled Absolute Monocytes Cancelled Absolute Eosinophils Cancelled Absolute Basophils Cancelled Platelet Estimate Cancelled Sodium 136.9 L Potassium 3.6 Chloride 105 Carbon Dioxide 26 Anion Gap 6 BUN 13 Creatinine 0.35 L Est GFR ( Amer) > 60 Est GFR (Non-Af Amer) > 60 Glucose 97 Calcium 9.3 Total Bilirubin 0.5 Direct Bilirubin 0.1 Neonat Total Bilirubin Not Reportable Neonat Direct Bilirubin Not Reportable Neonat Indirect Bili Not Reportable AST 19 ALT 22 Alkaline Phosphatase 95 Total Protein 6.2 L Albumin 3.3 L Lipase 69.3 Urine Color STRAW Urine Appearance CLEAR Urine pH 7.0 Ur Specific Patterson 1.008 Urine Protein NEGATIVE Urine Glucose (UA) NEGATIVE Urine Ketones NEGATIVE Urine Blood NEGATIVE Urine Nitrite NEGATIVE Urine Bilirubin NEGATIVE Urine Urobilinogen NEGATIVE Ur Leukocyte Esterase NEGATIVE Urine WBC (Auto) 1 Urine RBC (Auto) 0 Urine Bacteria (Auto) TRACE Squamous Epi Cells Auto 1 Urine Mucus (Auto) RARE Urine Ascorbic Acid NEGATIVE Slides for Path Review Cancelled 06/27/18 10:25 WBC 7.8 RBC 6.01 H Hgb 16.9 H Hct 50.6 H MCV 84 MCH 28.1 MCHC 33.4 RDW 15.0 H Plt Count 175 Seg Neutrophils % 60.6 Lymphocytes % 30.8 Monocytes % 7.6 Eosinophils % 0.7 Basophils % 0.3 Absolute Neutrophils 4.7 Absolute Lymphocytes 2.4 Absolute Monocytes 0.6 Absolute Eosinophils 0.1 Absolute Basophils 0.0 Platelet Estimate Sodium Potassium Chloride Carbon Dioxide Anion Gap BUN Creatinine Est GFR ( Amer) Est GFR (Non-Af Amer) Glucose Calcium Total Bilirubin Direct Bilirubin Neonat Total Bilirubin Neonat Direct Bilirubin Neonat Indirect Bili AST ALT Alkaline Phosphatase Total Protein Albumin Lipase Urine Color Urine Appearance Urine pH Ur Specific Patterson Urine Protein Urine Glucose (UA) Urine Ketones Urine Blood Urine Nitrite Urine Bilirubin Urine Urobilinogen Ur Leukocyte Esterase Urine WBC (Auto) Urine RBC (Auto) Urine Bacteria (Auto) Squamous Epi Cells Auto Urine Mucus (Auto) Urine Ascorbic Acid Slides for Path Review Limited or Localized CT 06/27/18 10:17 IMPRESSION: CONSTIPATION. OTHERWISE, NO SIGNIFICANT ABNORMALITY SEEN. - Vital Signs Vital signs: Temp Pulse Resp BP Pulse Ox 97.9 F 78 16 150/75 H 98 06/27/18 08:30 06/27/18 08:30 06/27/18 08:30 06/27/18 08:30 06/27/18 08:30 - Laboratory Result Diagrams: 06/27/18 10:25 06/27/18 09:44 Laboratory results interpreted by me: 06/27/18 06/27/18 09:44 10:25 RBC 6.01 H Hgb 16.9 H Hct 50.6 H RDW 15.0 H Sodium 136.9 L Creatinine 0.35 L Total Protein 6.2 L Albumin 3.3 L Discharge - Discharge Clinical Impression: Constipation Qualifiers: Constipation type: unspecified constipation type Qualified Code(s): K59.00 - Constipation, unspecified Abdominal pain Qualifiers: Abdominal location: unspecified location Qualified Code(s): R10.9 - Unspecified abdominal pain Condition: Stable Disposition: HOME, SELF-CARE Additional Instructions: Please start taking MiraLAX daily, as your CAT scan shows that you are rather constipated, this is likely a side effect of the fentanyl patch that you are taking, and it would improve your symptoms overall if you improve your constipation, you have also been prescribed Bentyl which can help with bowel cramping. Prescriptions: Dicyclomine HCl [Bentyl 20 mg Tablet] 20 mg PO TID PRN #15 tablet PRN Reason: Abdominal Cramping Polyethylene Glycol 3350 [Miralax] 17 gm PO DAILY #238 gm Referrals: GERMAIN PHILLIPS DO [Primary Care Provider] - Follow up in 3-5 days
[2018-06-27 10:21] LABS: ALANINE AMINOTRANSFERASE 22 U/L (9-52); ALBUMIN 3.3 g/dL (3.5-5.0); ALKALINE PHOSPHATASE 95 U/L (38-126); ANION GAP 6 (5-19); ASPARTATE AMINO TRANSFERASE 19 U/L (14-36); BILIRUBIN,DIRECT 0.1 mg/dL (0.0-0.4); BILIRUBIN,TOTAL 0.5 mg/dL (0.2-1.3); BLOOD UREA NITROGEN 13 mg/dL (7-20); CALCIUM 9.3 mg/dL (8.4-10.2); CARBON DIOXIDE 26 mmol/L (22-30); CHLORIDE 105 mmol/L (98-107); GLUCOSE 97 mg/dL (75-110); LIPASE 69.3 U/L (23-300); POTASSIUM 3.6 mmol/L (3.6-5.0); SODIUM 136.9 mmol/L (137-145); TOTAL PROTEIN 6.2 g/dL (6.3-8.2)
[2018-06-27 10:53] LABS: ABSOLUTE EOSINOPHILS # (AUTO) 0.1 10^3/uL (0.0-0.6); ABSOLUTE LYMPHOCYTES (AUTO) 2.4 10^3/uL (0.5-4.7); ABSOLUTE MONOCYTES (AUTO) 0.6 10^3/uL (0.1-1.4); ABSOLUTE NEUT (AUTO) 4.7 10^3/uL (1.7-8.2); BASOPHILS % (AUTO) 0.3 % (0-2); EOSINOPHILS % (AUTO) 0.7 % (0-6); HEMATOCRIT 50.6 % (36.0-47.0); HEMOGLOBIN 16.9 g/dL (12.0-15.5); LYMPHOCYTES % (AUTO) 30.8 % (13-45); MEAN CORPUSCULAR HEMOGLOBIN 28.1 pg (27.0-33.4); MEAN CORPUSCULAR HGB CONC 33.4 g/dL (32.0-36.0); MEAN CORPUSCULAR VOLUME 84 fl (80-97); MONOCYTES % (AUTO) 7.6 % (3-13); PLATELET COUNT 175 10^3/uL (150-450); RED BLOOD COUNT 6.01 10^6/uL (3.72-5.28); SEGMENTED NEUTROPHILS % (AUTO) 60.6 % (42-78); TOTAL CELLS COUNTED % (AUTO) 100 %; WHITE BLOOD COUNT 7.8 10^3/uL (4.0-10.5)
[2018-06-27 10:55] LABS: APPEARANCE,URINE CLEAR; BILIRUBIN,URINE NEGATIVE (NEGATIVE); COLOR,URINE STRAW; GLUCOSE, URINE NEGATIVE (NEGATIVE); KETONES,URINE NEGATIVE (NEGATIVE); LEUKOCYTE ESTERASE,URINE NEGATIVE (NEGATIVE); NITRITE,URINE NEGATIVE (NEGATIVE); PROTEIN,URINE NEGATIVE (NEGATIVE); URINE SPECIFIC GRAVITY 1.008; UROBILINOGEN,URINE NEGATIVE mg/dL (<2.0)
--- NOTE | 2018-06-27 11:24 | RADIOLOGY REPORT (SQ) ---
EXAM DESCRIPTION: CT LTD RENAL STONE PROTOCOL ON COMPLETED DATE/TIME: 06/27/2018 10:52 am REASON FOR STUDY: left flank pain. Status post appendectomy and cholecystectomy. COMPARISON: 05/21/2011. TECHNIQUE: CT scan of the abdomen and pelvis performed without intravenous or oral contrast. Images reviewed with lung, soft tissue, and bone windows. Reconstructed coronal and sagittal MPR images revi ewed. All images stored on PACS. All CT scanners at this facility use dose modulation, iterative reconstruction, and/or weight based d osing when appropriate to reduce radiation dose to as low as reasonably achievable (ALARA). [facility]: Dose Right [facility]: CareDose [facility]: Dose Right [facility]: Teradose 4D [facility]: Smart Relux RADIATION DOSE: CT Rad equipment meets quality standard of care and radiation dose reduction techniq ues were employed. CTDIvol: 6.6 mGy. DLP: 334 mGy-cm.mGy. LIMITATIONS: None. FINDINGS: LOWER CHEST: No abnormality . NON-CONTRASTED LIVER, SPLEEN, ADRENALS: Liver: No abnormality. Spleen: No abnormality. PANCREAS: No masses. No peripancreatic inflammatory changes. GALLBLADDER: Surgical clips in gallbladder fossa compatible with history of cholecystectomy. . RIGHT KIDNEY AND URETER: No suspicious masses. Assessment limited by lack of IV contrast. No signif icant calcifications. No hydronephrosis or hydroureter. LEFT KIDNEY AND URETER: No suspicious masses. Assessment limited by lack of IV contrast. No signifi cant calcifications. No hydronephrosis or hydroureter. AORTA AND RETROPERITONEUM: Atherosclerotic change of the abdominal aorta and iliac vessels. BOWEL A ND PERITONEAL CAVITY: Constipation. Diverticulosis of the cecum. APPENDIX: Metallic densities adjacent to cecum compatible with changes of appendectomy. PELVIS, BLADDER, AND ABDOMINAL WALL:Urinary bladder: No abnormality. Uterus: Atrophic. BONES: Multilevel lumbar spondylosis with degenerative disc disease L4-S1. Degenerative anterolisthe sis of L3 on L4. IMPRESSION: CONSTIPATION. OTHERWISE, NO SIGNIFICANT ABNORMALITY SEEN. COMMENT: Quality ID # [id number]: Final reports with documentation of one or more dose reduction techniques (e.g., Automated exposure control, adjustment of the mA and/or kV according to patient size, use of iterative reconstruction technique) TECHNICAL DOCUMENTATION: JOB ID: [id number] SC-[id number] 2010 [employer]- All Rights Reserved Reading location - IP/workstation name: [email or web address]
[2018-06-27 11:47] VITALS: BP 146/73
== END 2018-06-27 11:47 | disposition home or self-care (01) ==
LOC: ER 08:22
DX: K59.00 Constipation, unspecified (principal); R10.9 Unspecified abdominal pain; E11.9 Type 2 diabetes mellitus without complications; I10 Essential (primary) hypertension; Z88.6 Allergy status to analgesic agent; Z86.74 Personal history of sudden cardiac arrest
CPT/HCPCS: 99284; 96361; 96374; 96375; 36415; 83690; 85025; 80053; 81001; 76380; J1170; J2405; J7030

== ENCOUNTER 2018-08-04 17:47 | Emergency (ER) | payer MEDICARE, MEDICAID ==
--- NOTE | 2018-08-04 19:24 | ER Document Report ---
ED Medical Screen (RME) - General Chief Complaint: Hand Pain Stated Complaint: FINGER LACERATION Time Seen by Provider: 08/04/18 19:01 Primary Care Provider: JAD CANELA MD [ACTIVE STAFF] - Follow up tomorrow GERMAIN PHILLIPS DO [Primary Care Provider] - Follow up as needed Mode of Arrival: Ambulatory Information source: Patient Notes: 63-year-old female presents to ED for an infected right ring finger unable to flex the finger. She states she has had this in the past and Dr. Gerber open her finger up from top to bottom put her on antibiotics and then sewed her finger back together. She states the finger is getting tighter and tighter and it is very painful. Patient is alert and oriented respirations regular and unlabored speaking in full sentences but is unable to flex the right fourth finger. TRAVEL OUTSIDE OF THE [place] IN LAST 30 DAYS: No - Related Data Allergies/Adverse Reactions: promethazine HCl [From Phenergan] Allergy (Severe, Verified 06/27/18 08:24) morphine Allergy (Verified 06/27/18 08:24) Past Medical History - Social History Family history: None - Past Medical History Cardiac Medical History: Reports: Hx Heart Attack - 1998, Hx Hyperch olesterolemia, Hx Hypertension Pulmonary Medical History: Reports: Hx Bronchitis Neurological Medical History: Denies: Hx Seizures Endocrine Medical History: Reports: Hx Diabetes Mellitus Type 2 Renal/ Medical History: Denies: Hx Peritoneal Dialysis Musculoskeltal Medical History: Reports Hx Arthritis, Reports Hx Fibromyalgia, Reports Hx Musculoskeletal Deformity, Reports Hx Musculoskeletal Trauma Psychiatric Medical History: Reports: Hx Attention Deficit Hyperactivity Disorder, Hx Depression Traumatic Medical History: Reports: Hx Fractures Past Surgical History: Reports: Hx Appendectomy, Hx Cardiac Surgery - 1 stent after [place], Hx Section - x2, Hx Cholecystectomy, Hx Orthopedic Surgery - Bilateral foot surgery, total of 5 surgeries - Immunizations Immunizations up to date: Yes Hx Diphtheria, Pertussis, Tetanus Vaccination: Yes Physical Exam - Vital signs Vitals: Temp Pulse Resp BP Pulse Ox 98.4 F 90 14 129/68 H 94 08/04/18 18:15 08/04/18 18:15 08/04/18 18:15 08/04/18 18:15 08/04/18 18:15 Course - Vital Signs Vital signs: Temp Pulse Resp BP Pulse Ox 98.1 F 79 16 121/69 100 08/04/18 22:04 08/04/18 22:04 08/04/18 22:04 08/04/18 22:04 08/04/18 22:04 - Laboratory Result Diagrams: 08/04/18 20:20 08/04/18 20:20 Laboratory results interpreted by me: 08/04/18 08/04/18 20:20 20:20 WBC 12.5 H RBC 5.97 H Hgb 16.8 H Hct 49.8 H RDW 15.5 H Creatinine 0.34 L Doctor's Discharge - Discharge Clinical Impression: Cellulitis of finger Condition: Good Disposition: HOME, SELF-CARE Instructions: Cellulitis ([facility]) Additional Instructions: You must follow-up with the orthopedic surgeon listed in your paperwork tomorrow. Call in the morning as soon as the office opens. Make sure that they know that you were seen in the emergency department and the doctor has been made aware of your coming. Prescriptions: Hydrocodone/Acetaminophen [[place] 7.5-325 Tablet] 1 each PO Q6HP PRN #10 tablet PRN Reason: Cephalexin Monohydrate [Keflex 500 mg Capsule] 500 mg PO QID 10 Days #40 capsule Sulfamethoxazole/Trimethoprim [Bactrim Ds Tablet] 1 each PO BID 10 Days #20 tablet Referrals: JAD CANELA MD [ACTIVE STAFF] - Follow up tomorrow GERMAIN PHILLIPS DO [Primary Care Provider] - Follow up as needed
[2018-08-04] MEDS ORDERED: LIDOCAINE 1% INJ-PF (10 MG/ML) 30 ML SDV INJ ONE (20:04)
[2018-08-04] MEDS ORDERED: BUPIVACAINE HCL 0.5 % INJ/PF 30 ML SDV INJ ONE (20:04)
--- NOTE | 2018-08-04 20:09 | ER Document Report ---
ED General - General Chief Complaint: Hand Pain Stated Complaint: FINGER LACERATION Time Seen by Provider: 08/04/18 19:01 Primary Care Provider: GERMAIN PHILLIPS DO [Primary Care Provider] - Follow up as needed Mode of Arrival: Ambulatory Information source: Patient TRAVEL OUTSIDE OF THE [place] IN LAST 30 DAYS: No - HPI Patient complains to provider of: Finger infection Onset: Other - Past couple of days Onset/Duration: Gradual Quality of pain: Sharp Severity: Severe Associated symptoms: denies: Chills, Fever Exacerbated by: Denies Relieved by: Denies Similar symptoms previously: No Recently seen / treated by doctor: No Notes: 63-year-old -[place] female with history of diabetes coming in today with a right ring finger abscess. History of same in the past. Does not recall recent injury. Does not recall any possibility of foreign body or foreign. She does not have any fevers or chills. The finger is obviously very painful in the area that is affected. - Related Data Allergies/Adverse Reactions: promethazine HCl [From Phenergan] Allergy (Severe, Verified 06/27/18 08:24) morphine Allergy (Verified 06/27/18 08:24) Past Medical History - General Information source: Patient - Social History Smoking Status: Smoker,Current Status Unk Family History: None, Reviewed & Not Pertinent - Past Medical History Cardiac Medical History: Reports: Hx Heart Attack - 1998, Hx Hypercholesterolemia, Hx Hypertension Pulmonary Medical History: Reports: Hx Bronchitis Neurological Medical History: Denies: Hx Seizures Endocrine Medical History: Reports: Hx Diabetes Mellitus Type 2 Renal/ Medical History: Denies: Hx Peritoneal Dialysis Musculoskeletal Medical History: Reports Hx Arthritis, Reports Hx Fibromyalgia, Reports Hx Musculoskeletal Deformity, Reports Hx Musculoskeletal Trauma Psychiatric Medical History: Reports: Hx Attention Deficit Hyperactivity Disorder, Hx Depression Traumatic Medical History: Reports: Hx Fractures Past Surgical History: Reports: Hx Appendectomy, Hx Cardiac Surgery - 1 stent after [place], Hx Section - x2, Hx Cholecystectomy, Hx Orthopedic Surgery - Bilateral foot surgery, total of 5 surgeries - Immunizations Immunizations up to date: Yes Hx Diphtheria, Pertussis, Tetanus Vaccination: Yes Review of Systems - Review of Systems Notes: Constitutional: No fevers. No chills. EENT: No eye redness. No eye pain. No ear pain. No sore throat. Cardiovascular: No chest pain. No palpitations. Respiratory: No cough. No shortness of breath. No respiratory distress. Gastrointestinal: No abdominal pain. No nausea, vomiting, or diarrhea. Genitourinary: Atraumatic. No lesions. No pain. No discharge. Musculoskeletal: Abscess right ring finger. Right ring finger swelling and pain Skin: No rash or lesions. Lymphatic: No swollen lymph nodes. Neurologic: No headache. No syncope. Psychiatric: No suicidal or homicidal ideation. Physical Exam - Vital signs Vitals: Temp Pulse Resp BP Pulse Ox 98.4 F 90 14 129/68 H 94 08/04/18 18:15 08/04/18 18:15 08/04/18 18:15 08/04/18 18:15 08/04/18 18:15 - Notes Notes: General: Well-developed, well-nourished. In no acute distress. Non-toxic appearing. Cardiac: Well-perfused. Regular rate and rhythm. No murmurs, rubs, or gallops. Pulmonary: No respiratory distress. No cyanosis. Bilateral lung fiels are clear to auscultation. Abdominal: Non-distended. Non-rigid. Bowels sounds are present in all four quadrants. No guarding or rebound. HEENT: Head is atraumatic. Conjunctivae not reddened. No tearing. PERRL. EOMI. Orbits atraumatic. No periorbital swelling or erythema. Oropharynx is without erythema, swelling, or exudates. Neck: Supple. No adenopathy. No meningismus. Dermatologic: Warm with good turgor. No rash. Atraumatic. Chest: Atraumatic. No chest wall tenderness to palpation. Musculoskeletal: Moves all extremities well. No range of motion deficits. no muscular or joint tenderness. Right ring finger is abscess in the soft tissue just above the DIP joint. Not fully circumferential. Area is erythematous swollen exquisitely tender to palpate. Patient cannot flex the DIP joint, nor can she fully extend it. Genitourinary: Examination deferred Neurologic: No gross neurologic deficits. Psychiatric: Normal mood. Course - Re-evaluation Re-evalutation: 08/04/18 20:13 Basic labs and x-ray were ordered. I discussed the case in length with attending Ricardo. He insists that this is not a case of tenosynovitis. He insists that incision and drainage is indicated this close to the joint. 08/04/18 21:01 Incision and drainage was attempted. I actually had Dr. Silva look at it. He examined the areas where I incised the finger and advised not to go any further. I spoke to Dr. Espinoza who said he would follow-up in the office tomorrow. We will go ahead and give her a dose of 900 clindamycin IV and discharge her home on Bactrim and Keflex and something for pain - Vital Signs Vital signs: Temp Pulse Resp BP Pulse Ox 98.4 F 90 14 129/68 H 94 08/04/18 18:15 08/04/18 18:15 08/04/18 18:15 08/04/18 18:15 08/04/18 18:15 - Laboratory Result Diagrams: 08/04/18 20:20 08/04/18 20:20 Laboratory results interpreted by me: 08/04/18 20:20 WBC 12.5 H RBC 5.97 H Hgb 16.8 H Hct 49.8 H RDW 15.5 H - Diagnostic Test Radiology reviewed: Reports reviewed Procedures - Incision and Drainage Right 4th digit Type: Simple Anesthetic type: 1% Lidocaine, 0.5% Bupivacaine mL's of anesthetic: 10 Blade size: 11 I&D procedure: Shurclens applied Incision Method: Incision made by scalpel Amount/type of drainage: Scant Notes: 08/04/18 21:04 Only got a small amount of sanguinous fluid. I cultured it. Discharge - Discharge Clinical Impression: Cellulitis of finger Qualifiers: Laterality: right Qualified Code(s): L03.011 - Cellulitis of right finger Condition: Good Disposition: HOME, SELF-CARE Instructions: Cellulitis ([facility]) Additional Instructions: You must follow-up with the orthopedic surgeon listed in your paperwork keisha perez. Call in the morning as soon as the office opens. Make sure that they know that you were seen in the emergency department and the doctor has been made aware of your coming. Prescriptions: Hydrocodone/Acetaminophen [[place] 7.5-325 Tablet] 1 each PO Q6HP PRN #10 tablet PRN Reason: Cephalexin Monohydrate [Keflex 500 mg Capsule] 500 mg PO QID 10 Days #40 capsule Sulfamethoxazole/Trimethoprim [Bactrim Ds Tablet] 1 each PO BID 10 Days #20 tablet Referrals: GERMAIN PHILLIPS DO [Primary Care Provider] - Follow up as needed JAD CANELA MD [ACTIVE STAFF] - Follow up tomorrow
--- NOTE | 2018-08-04 20:10 | RADIOLOGY REPORT (SQ) ---
3 VIEWS OF THE RIGHT HAND HISTORY: Infection of the fourth digit COMPARISON: 04/17/2018 FINDINGS: Generalized osteopenia is present. No acute fracture or dislocation. There is an unchanged calcification abutting the fourth PIP joint. Mild degenerative changes of the interphalangeal joints. IMPRESSION: No acute fracture or dislocation.
[2018-08-04 20:42] LABS: ABSOLUTE BASOPHILS # (AUTO) 0.1 10^3/uL (0.0-0.2); ABSOLUTE EOSINOPHILS # (AUTO) 0.1 10^3/uL (0.0-0.6); ABSOLUTE LYMPHOCYTES (AUTO) 3.8 10^3/uL (0.5-4.7); ABSOLUTE MONOCYTES (AUTO) 1.3 10^3/uL (0.1-1.4); ABSOLUTE NEUT (AUTO) 7.3 10^3/uL (1.7-8.2); BASOPHILS % (AUTO) 0.4 % (0-2); EOSINOPHILS % (AUTO) 0.8 % (0-6); HEMATOCRIT 49.8 % (36.0-47.0); HEMOGLOBIN 16.8 g/dL (12.0-15.5); LYMPHOCYTES % (AUTO) 30.6 % (13-45); MEAN CORPUSCULAR HEMOGLOBIN 28.1 pg (27.0-33.4); MEAN CORPUSCULAR HGB CONC 33.7 g/dL (32.0-36.0); MEAN CORPUSCULAR VOLUME 84 fl (80-97); MONOCYTES % (AUTO) 10.1 % (3-13); PLATELET COUNT 180 10^3/uL (150-450); RED BLOOD COUNT 5.97 10^6/uL (3.72-5.28); RED CELL DISTRIBUTION WIDTH 15.5 % (11.5-14.0); SEGMENTED NEUTROPHILS % (AUTO) 58.1 % (42-78); TOTAL CELLS COUNTED % (AUTO) 100 %; WHITE BLOOD COUNT 12.5 10^3/uL (4.0-10.5)
[2018-08-04 21:02] LABS: ALANINE AMINOTRANSFERASE 17 U/L (9-52); ALBUMIN 4.2 g/dL (3.5-5.0); ALKALINE PHOSPHATASE 119 U/L (38-126); ANION GAP 10 (5-19); ASPARTATE AMINO TRANSFERASE 24 U/L (14-36); BILIRUBIN,DIRECT 0.2 mg/dL (0.0-0.4); BILIRUBIN,TOTAL 0.5 mg/dL (0.2-1.3); BLOOD UREA NITROGEN 17 mg/dL (7-20); CALCIUM 9.9 mg/dL (8.4-10.2); CARBON DIOXIDE 26 mmol/L (22-30); CHLORIDE 103 mmol/L (98-107); GLUCOSE 95 mg/dL (75-110); POTASSIUM 4.4 mmol/L (3.6-5.0); SODIUM 138.8 mmol/L (137-145); TOTAL PROTEIN 7.1 g/dL (6.3-8.2)
[2018-08-04] MEDS ORDERED: CLINDAMYCIN 900 MG/D5W RTU 900 MG/50 ML RTUPB IV SCH (22:00)
[2018-08-04 22:13] VITALS: BP 121/69
== END 2018-08-04 22:12 | disposition home or self-care (01) ==
LOC: ER 17:47
DX: L03.011 Cellulitis of right finger (principal); L02.511 Cutaneous abscess of right hand; E11.9 Type 2 diabetes mellitus without complications; I10 Essential (primary) hypertension; Z88.8 Allergy status to other drugs, medicaments and biological substances; Z88.5 Allergy status to narcotic agent; Z95.5 Presence of coronary angioplasty implant and graft
CPT/HCPCS: 36415; 80053; 85025; 87070; 87205; 99283; A6266

== ENCOUNTER → 2019-01-07 | Outpatient (CLI) | payer MEDICARE, MEDICAID ==
[2019-01-07 09:25] LABS: ABSOLUTE EOSINOPHILS # (AUTO) 0.2 10^3/uL (0.0-0.6); ABSOLUTE MONOCYTES (AUTO) 0.7 10^3/uL (0.1-1.4); ABSOLUTE NEUT (AUTO) 3.3 10^3/uL (1.7-8.2); BASOPHILS % (AUTO) 0.5 % (0-2); EOSINOPHILS % (AUTO) 2.8 % (0-6); HEMATOCRIT 46.4 % (36.0-47.0); HEMOGLOBIN 15.3 g/dL (12.0-15.5); LYMPHOCYTES % (AUTO) 41.6 % (13-45); MEAN CORPUSCULAR HEMOGLOBIN 27.7 pg (27.0-33.4); MEAN CORPUSCULAR HGB CONC 33.1 g/dL (32.0-36.0); MEAN CORPUSCULAR VOLUME 84 fl (80-97); MONOCYTES % (AUTO) 9.8 % (3-13); PLATELET COUNT 154 10^3/uL (150-450); RED BLOOD COUNT 5.52 10^6/uL (3.72-5.28); RED CELL DISTRIBUTION WIDTH 15.1 % (11.5-14.0); SEGMENTED NEUTROPHILS % (AUTO) 45.3 % (42-78); TOTAL CELLS COUNTED % (AUTO) 100 %; WHITE BLOOD COUNT 7.2 10^3/uL (4.0-10.5)
--- NOTE | 2019-01-07 09:31 | RADIOLOGY REPORT (SQ) ---
EXAM DESCRIPTION: FOOT LEFT COMPLETE COMPLETED DATE/TIME: 01/07/2019 8:34 am REASON FOR STUDY: NON-PRS CHRONIC ULCER OTH PRT LEFT FOOT W FAT LAYER EXPOSED L97.522 NON-PRS CHRON IC ULCER OTH PRT LEFT FOOT W FAT LAYER E11.621 TYPE 2 DIABETES MELLITUS WITH FOOT ULCER COMPARISON: None. NUMBER OF VIEWS: Three views. TECHNIQUE: AP, lateral and oblique radiographic images acquired of the left foot. LIMITATIONS: None. FINDINGS: MINERALIZATION: Normal. BONES: No acute findings. Slight irregularity and sclerotic change of the articulating surface of th e head of the 1st metatarsal. . May be secondary to degenerative change although might related prev ious infection. No lytic changes to suggest osteomyelitis. JOINTS: No effusions. SOFT TISSUES: No soft tissue swelling. No foreign body. OTHER: No other significant finding. IMPRESSION: Minimal prominent chronic change involving the articulating surface of the head of the 1 st metatarsal. See above discussion. History of soft tissue ulceration but the soft tissue defect n ot clearly identified. No lytic changes to suggest osteomyelitis. TECHNICAL DOCUMENTATION: JOB ID: [id number] [employer]- All Rights Reserved Reading location - IP/workstation name: [email or web address]
[2019-01-07 09:50] LABS: ALANINE AMINOTRANSFERASE 30 U/L (9-52); ALBUMIN 3.8 g/dL (3.5-5.0); ALKALINE PHOSPHATASE 121 U/L (38-126); ANION GAP 7 (5-19); ASPARTATE AMINO TRANSFERASE 46 U/L (14-36); BILIRUBIN,DIRECT 0.3 mg/dL (0.0-0.4); BLOOD UREA NITROGEN 12 mg/dL (7-20); CALCIUM 9.5 mg/dL (8.4-10.2); CARBON DIOXIDE 27 mmol/L (22-30); CHLORIDE 104 mmol/L (98-107); GLUCOSE 84 mg/dL (75-110); POTASSIUM 4.2 mmol/L (3.6-5.0); SODIUM 138.2 mmol/L (137-145)
[2019-01-07 09:55] LABS: C-REACTIVE PROTEIN < 5.0 mg/L (<10.0)
[2019-01-07 10:05] LABS: ERYTHROCYTE SEDIMENTATION RATE 6 mm/hr (0-30)
== END ==
LOC: WC 08:17
PROVIDERS: ATTEND Preventive Medicine Undersea and Hyperbaric Medicine
DX: E11.621 Type 2 diabetes mellitus with foot ulcer (principal); L97.522 Non-pressure chronic ulcer of other part of left foot with fat layer exposed
CPT/HCPCS: 36415; 80053; 83036; 85025; 85652; 86140

== ENCOUNTER → 2019-01-22 | Outpatient (CLI) | payer MEDICARE, MEDICAID ==
[2019-01-22 08:29] LABS: ABSOLUTE EOSINOPHILS # (AUTO) 0.2 10^3/uL (0.0-0.6); ABSOLUTE LYMPHOCYTES (AUTO) 3.2 10^3/uL (0.5-4.7); ABSOLUTE NEUT (AUTO) 3.8 10^3/uL (1.7-8.2); BASOPHILS % (AUTO) 0.2 % (0-2); EOSINOPHILS % (AUTO) 2.1 % (0-6); HEMATOCRIT 46.4 % (36.0-47.0); HEMOGLOBIN 15.5 g/dL (12.0-15.5); LYMPHOCYTES % (AUTO) 39.2 % (13-45); MEAN CORPUSCULAR HGB CONC 33.4 g/dL (32.0-36.0); MEAN CORPUSCULAR VOLUME 84 fl (80-97); MONOCYTES % (AUTO) 11.9 % (3-13); PLATELET COUNT 138 10^3/uL (150-450); RED BLOOD COUNT 5.52 10^6/uL (3.72-5.28); RED CELL DISTRIBUTION WIDTH 14.9 % (11.5-14.0); SEGMENTED NEUTROPHILS % (AUTO) 46.6 % (42-78); TOTAL CELLS COUNTED % (AUTO) 100 %; WHITE BLOOD COUNT 8.1 10^3/uL (4.0-10.5)
[2019-01-22 09:03] LABS: ALANINE AMINOTRANSFERASE 39 U/L (9-52); ALBUMIN 3.6 g/dL (3.5-5.0); ALKALINE PHOSPHATASE 106 U/L (38-126); ANION GAP 7 (5-19); ASPARTATE AMINO TRANSFERASE 35 U/L (14-36); BILIRUBIN,DIRECT 0.3 mg/dL (0.0-0.4); BILIRUBIN,TOTAL 0.9 mg/dL (0.2-1.3); BLOOD UREA NITROGEN 13 mg/dL (7-20); CALCIUM 9.8 mg/dL (8.4-10.2); CARBON DIOXIDE 25 mmol/L (22-30); CHLORIDE 105 mmol/L (98-107); GLUCOSE 86 mg/dL (75-110); POTASSIUM 4.5 mmol/L (3.6-5.0); TOTAL PROTEIN 6.6 g/dL (6.3-8.2)
[2019-01-23 09:32] LABS: CHOLESTEROL 122.03 mg/dL (0-200); TRIGLYCERIDES 137 mg/dL (<150)
[2019-01-23 09:43] LABS: DIRECT LDL 71 mg/dL (<100)
== END ==
LOC: OD 07:25
PROVIDERS: ATTEND Student in an Organized Health Care Education/Training Program
DX: I10 Essential (primary) hypertension (principal); E78.5 Hyperlipidemia, unspecified; Z79.899 Other long term (current) drug therapy
CPT/HCPCS: 36415; 80053; 80061; 85025

== ENCOUNTER 2019-05-01 02:40 | Emergency (ER) | payer MEDICARE, MEDICAID ==
[2019-05-01] MEDS ORDERED: KETOROLAC TROMETHAMINE 60 MG/2 ML SDV IM ONE (03:17)
--- NOTE | 2019-05-01 03:20 | ER Document Report ---
HPI - HPI Time Seen by Provider: 05/01/19 03:09 Pain Level: 4 Context: Patient is a 63-year-old female that comes to the emergency department for chief complaint of sharp pain in her right lower back. She states this is been worsening over the past couple of days. She states that she pulled a muscle when she was trying to transfer her mother from a chair to the bed, mother is in her 80s and requires a lot of assistance, patient states she twisted and felt a sharp pain. She denies numbness, incontinence, or any other locations of pain. She denies nausea or vomiting, fever chills, history of IV drug abuse. She denies history of back surgery but she does have a history of neuropathy with some chronic back pain. - REPRODUCTIVE Reproductive: DENIES: : Past Medical History - General Information source: Patient - Social History Smoking Status: Former Smoker Chew tobacco use (# tins/day): No Frequency of alcohol use: None Drug Abuse: None Lives with: Family Family History: None, Reviewed & Not Pertinent Patient has suicidal ideation: No Patient has homicidal ideation: No - Past Medical History Cardiac Medical History: Reports: Hx Heart Attack - 1998, Hx Hypercholesterolemia, Hx Hypertension Pulmonary Medical History: Reports: Hx Bronchitis Neurological Medical History: Denies: Hx Seizures Endocrine Medical History: Reports: Hx Diabetes Mellitus Type 2 Renal/ Medical History: Denies: Hx Peritoneal Dialysis Musculoskeletal Medical History: Reports Hx Arthritis, Reports Hx Fibromyalgia, Reports Hx Musculoskeletal Deformity, Reports Hx Musculoskeletal Trauma Psychiatric Medical History: Reports: Hx Attention Deficit Hyperactivity Disorder, Hx Depression Traumatic Medical History: Reports: Hx Fractures Past Surgical History: Reports: Hx Appendectomy, Hx Cardiac Surgery - 1 stent after [place], Hx Section - x2, Hx Cholecystectomy, Hx Orthopedic Surgery - Bilateral foot surgery, total of 5 surgeries - Immunizations Immunizations up to date: Yes Hx Diphtheria, Pertussis, Tetanus Vaccination: Yes Vertical Provider Document - CONSTITUTIONAL General Appearance: WD/WN, No Apparent Distress - INFECTION CONTROL TRAVEL OUTSIDE OF THE [place] IN LAST 30 DAYS: No - HEENT HEENT: Atraumatic, Normal ENT Exam, Normocephalic - NECK Neck: Normal Inspection - RESPIRATORY Respiratory: Breath Sounds Normal, No Respiratory Distress, Chest Non-Tender - CARDIOVASCULAR Cardiovascular: Regular Rate, Regular Rhythm - GI/ABDOMEN Gastrointestinal: Abdomen Soft, Abdomen Non-Tender. negative: Abdomen Tender - BACK Back: negative: Normal Inspection - Tight tender muscles along the right paraspinal muscular is trending down towards the buttocks. Negative straight leg raise. No axial loading abnormality. Patient moves with discomfort but is able to ambulate. No midline tenderness, no saddle anesthesia, no signs of trauma. Normal upper and lower extremity range of motion, normal strength, normal distal neurovascular exam. - MUSCULOSKELETAL/EXTREMETIES Musculoskeletal/Extremeties: MAEW, FROM, Non-Tender - NEURO Level of Consciousness: Awake, Alert, Appropriate Motor/Sensory: No Motor Deficit, No Sensory Deficit - DERM Integumentary: Warm, Dry, No Rash Course - Re-evaluation Re-evalutation: Patient with history and physical exam consistent with muscle strain and spasm, no neurological deficits noted, no concerning symptoms reported including fever or incontinence. Patient states she has had similar injuries in the past. She states she has had no success with muscle relaxers in the past however. I did discuss options, decision was made to give patient Toradol here, place patient on naproxen and diazepam (she states she had excellent results with this once in the past with a previous injury and is familiar with it but has not taken it in a while) with precautions, discussed close follow-up and return precautions. Patient states appreciation and agreement. - Vital Signs Vital signs: Temp Pulse Resp BP Pulse Ox 98.5 F 89 20 145/73 H 96 05/01/19 02:51 05/01/19 02:51 05/01/19 02:51 05/01/19 02:51 05/01/19 02:51 Discharge - Discharge Clinical Impression: Lower back pain Qualifiers: Chronicity: acute Back pain laterality: right Sciatica presence: without sciatica Qualified Code(s): M54.5 - Low back pain Condition: Stable Disposition: HOME, SELF-CARE Additional Instructions: Your evaluation is consistent with muscle strain and muscle spasm in the right paralumbar area. No other concerning findings are noted at this time. Take the anti-inflammatory and muscle relaxer as prescribed, drink plenty fluids, apply heat to the area, do gentle stretches and rest. Follow-up with primary care. Return for any concerning symptoms including numbness, inability to control your bowels or bladder, fever, or any other concerning or worsening symptoms. Prescriptions: Naproxen 375 mg PO BID PRN #14 tablet.dr LEACH Reason: Diazepam [Valium 5 mg Tablet] 1 - 2 tab PO TID PRN #12 tablet PRN Reason: Referrals: GERMAIN PHILLIPS DO [Primary Care Provider] - Follow up as needed
[2019-05-01 03:49] VITALS: BP 141/68
== END 2019-05-01 03:48 | disposition home or self-care (01) ==
LOC: ER 02:40
DX: M54.5 Low back pain (principal); E78.00 Pure hypercholesterolemia, unspecified; I10 Essential (primary) hypertension; E11.9 Type 2 diabetes mellitus without complications; I25.2 Old myocardial infarction; Z90.49 Acquired absence of other specified parts of digestive tract
CPT/HCPCS: 99283; 96372; J1885

== ENCOUNTER 2019-06-04 00:24 | Emergency (ER) | payer MEDICARE, MEDICAID ==
[2019-06-04] MEDS ORDERED: KETOROLAC TROMETHAMINE 60 MG/2 ML SDV IM ONE (02:57)
--- NOTE | 2019-06-04 03:07 | RADIOLOGY REPORT (SQ) ---
EXAM DESCRIPTION: XR KNEE 1-2 VIEWS COMPLETED DATE/TME: 06/04/2019 00:00 CLINICAL HISTORY: 64 years, Female, bone pain COMPARISON: None. NUMBER OF VIEWS: 2 TECHNIQUE: 2 views of the left knee LIMITATIONS: None. FINDINGS: Osteopenia. Negative for fracture or dislocation. Mild tricompartmental degenerative change. Soft tissues are unremarkable IMPRESSION: Osteopenia with minor degenerative change copyright 2010 [employer]- All Rights Reserved
--- NOTE | 2019-06-04 03:31 | ER Document Report ---
ED Extremity Problem, Lower - General Chief Complaint: Knee Injury Stated Complaint: LEFT KNEE PAIN Time Seen by Provider: 06/04/19 02:33 Primary Care Provider: GERMAIN PHILLIPS DO [Primary Care Provider] - Follow up as needed Notes: 64-year-old female presents with left knee pain that occurred earlier while she was helping someone into bed. Patient states that the person was obese and she twisted her knee. Patient states she has injured this knee previously and has torn something in it. TRAVEL OUTSIDE OF THE [place] IN LAST 30 DAYS: No - Related Data Allergies/Adverse Reactions: promethazine HCl [From Phenergan] Allergy (Severe, Verified 06/27/18 08:24) morphine Allergy (Verified 06/27/18 08:24) Home Medications: fentanyl patch. asa bid. metformin 500 mg qday. HCTZ 25 mg qday Past Medical History - Social History Smoking Status: Never Smoker Family History: None, Reviewed & Not Pertinent Patient has suicidal ideation: No Patient has homicidal ideation: No - Past Medical History Cardiac Medical History: Reports: Hx Heart Attack - 1998, Hx Hypercholesterolemia, Hx Hypertension Pulmonary Medical History: Reports: Hx Bronchitis Neurological Medical History: Denies: Hx Seizures Endocrine Medical History: Reports: Hx Diabetes Mellitus Type 2 Renal/ Medical History: Denies: Hx Peritoneal Dialysis Musculoskeletal Medical History: Reports Hx Arthritis, Reports Hx Fibromyalgia, Reports Hx Musculoskeletal Deformity, Reports Hx Musculoskeletal Trauma Psychiatric Medical History: Reports: Hx Attention Deficit Hyperactivity Disorder, Hx Depression Traumatic Medical History: Reports: Hx Fractures Past Surgical History: Reports: Hx Appendectomy, Hx Cardiac Surgery - 1 stent after [place], Hx Section - x2, Hx Cholecystectomy, Hx Orthopedic Surgery - Bilateral foot surgery, total of 5 surgeries - Immunizations Immunizations up to date: Yes Hx Diphtheria, Pertussis, Tetanus Vaccination: Yes Review of Systems - Review of Systems Notes: Constitutional: Negative for fever. HENT: Negative for sore throat. Eyes: Negative for visual changes. Cardiovascular: Negative for chest pain. Respiratory: Negative for shortness of breath. Gastrointestinal: Negative for abdominal pain, vomiting or diarrhea. Genitourinary: Negative for dysuria. Musculoskeletal: Positive for left knee pain. Negative for back pain. Skin: Negative for rash. Neurological: Negative for headaches, weakness or numbness. 10 point ROS negative except as marked above and in HPI. Physical Exam - Vital signs Vitals: Temp Pulse Resp BP Pulse Ox 98.3 F 86 16 148/63 H 99 06/04/19 00:57 06/04/19 00:57 06/04/19 00:57 06/04/19 00:57 06/04/19 00:57 - Notes Notes: GENERAL: Well-appearing, well-nourished and in no acute distress. HEAD: Atraumatic, normocephalic. EYES: Extraocular movements intact, sclera anicteric, conjunctiva are normal. NECK: Normal range of motion, supple without lymphadenopathy or JVD. EXTREMITIES: Normal range of motion, no pitting or edema. No clubbing or cyanosis. Left Knee: Tenderness to medial aspect, mild swelling, FROM in flexion/extension, mild crepitus on extension NEUROLOGICAL: Cranial nerves II through XII grossly intact. Normal speech, normal gait. PSYCH: Normal mood, normal affect. SKIN: Warm, Dry, normal turgor, no rashes or lesions noted. Course - Re-evaluation Re-evalutation: 06/04/19 64-year-old female presents with left knee pain that occurred after twisting it while helping someone into bed. Patient states she has previously injured her knee back in the 70s and was told she "tore something." Nontoxic, well-appearing. Afebrile. Patient has tenderness to medial aspect. Full range of motion flexion and extension. Patient's x-ray shows no fractures. Patient instructed to rest, ice, elevate knee and given ibuprofen prescription to go home with. Patient also given follow-up with PCP and follow-up with Ortho. Discussed all results with patient. Patient voices understanding and agrees with plan of care. - Vital Signs Vital signs: Temp Pulse Resp BP Pulse Ox 98.3 F 86 16 148/63 H 99 06/04/19 01:06 06/04/19 00:57 06/04/19 01:06 06/04/19 00:57 06/04/19 01:06 Procedures - Immobilization Left Knee Pre-Proc Neuro Vasc Exam: Normal Immobilizer type: Higinio wrap Performed by: Provider assisted Post-Proc Neuro Vasc Exam: Normal, Unchanged from pre-exam Discharge - Discharge Clinical Impression: Left knee pain Qualifiers: Chronicity: acute Qualified Code(s): M25.562 - Pain in left knee Condition: Stable Disposition: HOME, SELF-CARE Instructions: Sprained Knee ([facility]), Ice & Elevation ([facility]) Additional Instructions: Your x-ray of your left knee did not show any fractures. Rest, ice, and elevate left knee. Please take medications as prescribed. Do not drink or drive while taking [place] as it may make you drowsy. Return to ER for any worsening symptoms, including fever, worsening pain, worsening swelling, redness to area, inability to walk on her knee, or any other symptoms that are concerning to you. Prescriptions: Ibuprofen [Motrin 800 mg Tablet] 800 mg PO Q8H PRN #30 tab PRN Reason: Referrals: GERMAIN PHILLIPS DO [Primary Care Provider] - Follow up in 3-5 days GERSON VILLARELA JR, DO [ACTIVE PROVISIONAL STAFF] - Follow up in 1 month
[2019-06-04] MEDS ORDERED: HYDROCODONE/ACETAMINOPHEN 5-325 MG (6 TAB/ER DISP) PO PRN (03:41)
[2019-06-04 03:54] VITALS: BP 145/69
== END 2019-06-04 03:49 | disposition home or self-care (01) ==
LOC: ER 00:24
DX: M25.562 Pain in left knee (principal); I25.2 Old myocardial infarction; E11.9 Type 2 diabetes mellitus without complications; Z90.49 Acquired absence of other specified parts of digestive tract
CPT/HCPCS: 99283; 96372; 73560; J1885; A9270

== ENCOUNTER 2019-10-10 11:06 | Emergency (ER) | payer MEDICARE, MEDICAID ==
[2019-10-10 11:11] VITALS: BP 158/77
[2019-10-10] MEDS ORDERED: NYSTATIN TOPICAL POWDER 15 GM TP ONE (11:20)
[2019-10-10] MEDS ORDERED: CEPHALEXIN 500 MG CAPSULE PO ONE (11:20)
--- NOTE | 2019-10-10 11:24 | ER Document Report ---
ED Skin Rash/Insect Bite/Abscs - General Chief Complaint: Skin Problem Stated Complaint: SKIN PROBLEM CHEST Time Seen by Provider: 10/10/19 11:11 Primary Care Provider: GERMAIN PHILLIPS DO [Primary Care Provider] - Follow up as needed Mode of Arrival: Ambulatory Information source: Patient Notes: 64-year-old female presented to ED for complaint of red raw rash she area to the bilateral breast and under the breast of the chest. She states that she first noticed it about 4:00 this morning. There is cellulitis with a yeasty rash. Patient is alert oriented respirations regular nonlabored speaking in full sentences. She does have a history of diabetes type 2 MO high cholesterol high blood pressure both of which are resolved she also has had a tonsillectomy appendectomy cholecystectomy feet surgery x5 cardiac stents finger surgery for cellulitis and 2 C-sections. Patient will be treated with Keflex by mouth and nystatin powder to the area of the infection. She has been given instructions on cleaning well with soap and water rinse well pat dry let thoroughly dry and then apply powder. TRAVEL OUTSIDE OF THE [place] IN LAST 30 DAYS: No - HPI Patient complains to provider of: Skin rash/lesion, Other - Tender raw areas to both undersides of the breast and chest wall Onset: This morning Onset/Duration: Gradual Quality of pain: Burning Severity: Moderate Pain Level: 3 Skin Character: Erythema, Macules, Tenderness, Thickening Skin Temperature: Warm Quality of rash: Itchy, Burning Identify cause: No Exacerbated by: Denies Relieved by: Denies Similar symptoms previously: Yes Recently seen / treated by doctor: No - Related Data Allergies/Adverse Reactions: promethazine HCl [From Phenergan] Allergy (Severe, Verified 06/27/18 08:24) Past Medical History - General Information source: Patient - Social History Smoking Status: Never Smoker Frequency of alcohol use: None Drug Abuse: None Lives with: Family Family History: None, Reviewed & Not Pertinent Patient has suicidal ideation: No Patient has homicidal ideation: No - Past Medical History Cardiac Medical History: Reports: Hx Heart Attack - 1998, Hx Hypercholesterolemia, Hx Hypertension Pulmonary Medical History: Reports: Hx Bronchitis Neurological Medical History: Reports: None Endocrine Medical History: Reports: Hx Diabetes Mellitus Type 2 Renal/ Medical History: Reports: None Malignancy Medical History: Reports: None GI Medical History: Reports: None Musculoskeletal Medical History: Reports Hx Arthritis, Reports Hx Fibromyalgia, Reports Hx Musculoskeletal Deformity, Reports Hx Musculoskeletal Trauma Skin Medical History: Reports None Psychiatric Medical History: Reports: Hx Attention Deficit Hyperactivity Disorder, Hx Depression Traumatic Medical History: Reports: Hx Fractures Infectious Medical History: Reports: None Past Surgical History: Reports: Hx Appendectomy, Hx Cardiac Surgery - 1 stent after [place], Hx Section - x2, Hx Cholecystectomy, Hx Orthopedic Surgery - Bilateral foot surgery, total of 5 surgeries - Immunizations Immunizations up to date: Yes Hx Diphtheria, Pertussis, Tetanus Vaccination: Yes Review of Systems - Review of Systems Constitutional: No symptoms reported EENT: No symptoms reported Cardiovascular: No symptoms reported Respiratory: No symptoms reported Gastrointestinal: No symptoms reported Genitourinary: No symptoms reported Female Genitourinary: No symptoms reported Musculoskeletal: No symptoms reported Skin: Change in color, Rash Hematologic/Lymphatic: No symptoms reported Neurological/Psychological: No symptoms reported Physical Exam - Vital signs Vitals: Temp Pulse Resp BP Pulse Ox 97.8 F 96 18 158/77 H 98 10/10/19 11:10 10/10/19 11:10 10/10/19 11:10 10/10/19 11:10 10/10/19 11:10 Interpretation: Normal - General General appearance: Appears well, Alert - HEENT Head: Normocephalic, Atraumatic Eyes: Normal Pupils: PERRL - Respiratory Respiratory status: No respiratory distress Chest status: Nontender Breath sounds: Normal Chest palpation: Normal - Cardiovascular Rhythm: Regular Heart sounds: Normal auscultation Murmur: No - Abdominal Inspection: Normal Distension: No distension Bowel sounds: Normal Tenderness: Nontender Organomegaly: No organomegaly - Back Back: Normal, Nontender - Extremities General upper extremity: Normal inspection, Nontender, Normal color, Normal ROM, Normal temperature General lower extremity: Normal inspection, Nontender, Normal color, Normal ROM, Normal temperature, Normal weight bearing. No: Philomena's sign - Neurological Neuro grossly intact: Yes Cognition: Normal Orientation: AAOx4 Micki Coma Scale Eye Opening: Spontaneous [place]icki Coma Scale Verbal: Oriented [place] Coma Scale Motor: Obeys Commands Micki Coma Scale Total: 15 Speech: Normal Motor strength normal: LUE, RUE, LLE, RLE Sensory: Normal - Psychological Associated symptoms: Normal affect, Normal mood - Skin Skin Temperature: Warm Skin Moisture: Dry Skin Color: Normal Location of irregularity: Chest - Red inflamed with part of the skin removed with fine yeasty rash to bilateral underside of the breast and chest wall Character of irregularity: Macular, Erythematous Irregularity with: Tenderness Course - Re-evaluation Re-evalutation: 10/10/19 15:21 Patient given thorough instructions concerning cleaning rinsing patting dry her cellulitis and then applying nystatin powder. She was instructed to please keep the area clean and dry. She was also started on Keflex and instructed to please follow-up with her primary doctor in the next 24 to 48 hours. She verbalized understanding and agreement treatment plan and patient was discharged home peer - Vital Signs Vital signs: Temp Pulse Resp BP Pulse Ox 97.8 F 96 18 158/77 H 98 10/10/19 11:10 10/10/19 11:10 10/10/19 11:10 10/10/19 11:10 10/10/19 11:10 - Laboratory Laboratory results interpreted by me: 10/10/19 11:20 POC Glucose 116 H Discharge - Discharge Clinical Impression: Cellulitis of chest wall Condition: Stable Disposition: HOME, SELF-CARE Additional Instructions: CELLULITIS: You have an infection of your skin and underlying soft tissues called cellulitis. This is due to bacteria, which can enter through any break in the skin, or even through an irritated hair follicle. Untreated, cellulitis will usually worsen. Antibiotics are required. Usually, warm packs or warm soaks, and elevation of the infected area are recommended. You should start getting better within 24 to 36 hours. Most infections respond quickly to the right medication. Follow-up care is important, however, to check for abscess (boil) formation, unsuspected foreign body, or resistant infection. If you develop fever, chills, or if the area of infection is becoming rapidly more swollen or painful, call the doctor at once. Soap Cleansing Gently wash the wound daily using a mild soap (like Ivory, Phisoderm, Neutrogena). Use warm water, rubbing gently until all debris, ooze, and crusting have been washed from the wound. Allow to dry briefly (about 10 minutes) after cleaning. Repeat this cleansing at least three times a day for the first two days and then once or twice a day. After you pat yourself dry and allowed to dry thoroughly then apply your nystatin powder. Do this at least twice a day Cephalexin The antibiotic you've been prescribed is a member of the cephalosporin class. This type of antibiotic covers a wide variety of infections, including those of the skin, lungs, and urinary tract. It's useful for staph infections. This antibiotic is slightly similar to the penicillin family. In rare cases, a person who is allergic to penicillin will also be allergic to this medication. If you have had a severe allergic reaction to penicillin, and have not taken this antibiotic since that time, notify your doctor. Antibiotics which cover many germs ("broad spectrum" antibiotics) are more likely to cause diarrhea or "yeast" infections. Women prone to vaginal yeast problems may suffer an attack after taking this antibiotic. In infants, oral thrush (white spots "stuck" on the cheek) or yeast diaper rash may result. See your doctor if these problems occur. Call at once if you develop itching, hives, shortness of breath, or lightheadedness. Acetaminophen Acetaminophen may be taken for pain relief or fever control. It's much safer than aspirin, offering a wider range of "safe" dosages. It is safe during . Some brand names are Tylenol, Panadol, Datril, Anacin 3, Tempra, and Liquiprin. Acetaminophen can be repeated every four hours. The following are maximum recommended dosages: WEIGHT Dose Drops Elixir Chewable(80mg) (LBS.) drprs=droppers tsp=teaspoon 6 40 mg .4 ml (1/2) 6-11 80 mg .8 ml (full) 1/2 tsp 1 tab 12-16 120 mg 1 1/2 drprs 3/4 tsp 1 1/2 tabs 17-23 160 mg 2 drprs 1 tsp 2 tabs 24-30 240 mg 3 drprs 1 1/2 tsp 3 tabs 30-35 320 mg 2 tsp 4 tabs 36-41 360 mg 2 1/4 tsp 4 1/2 tabs 42-47 400 mg 2 1/2 tsp 5 tabs 48-53 480 mg 3 tsp 6 tabs 54-59 520 mg 3 1/4 tsp 6 1/2 tabs 60-64 560 mg 3 1/2 tsp 7 tabs 65-70 600 mg 3 3/4 tsp 7 1/2 tabs 71-76 640 mg 4 tsp 8 tabs 77-82 720 mg 4 1/2 tsp 9 tabs 83-88 800 mg 5 tsp 10 tabs >89 pounds or adults 650 mg to 900 mg Acetaminophen can be repeated every four hours. Maximum daily dose not to exceed 4000 mg. These maximum recommended dosages are slightly higher than the dosages written on the product container, but these dosages are very safe and well below the toxic dosage for acetaminophen. FOLLOW-UP CARE: If you have been referred to a physician for follow-up care, call the physicians office for an appointment as you were instructed or within the next two days. If you experience worsening or a significant change in your symptoms, notify the physician immediately or return to the Emergency Department at any time for re-evaluation. Prescriptions: Cephalexin Monohydrate [Keflex 500 mg Capsule] 500 mg PO Q6H 5 Days #20 capsule Nystatin [Mycostatin Topical Powder 15 gm] 1 applic TP BID #1 bottle Forms: Elevated Blood Pressure Referrals: GERMAIN PHILLIPS DO [Primary Care Provider] - Follow up as needed
== END 2019-10-10 11:42 | disposition home or self-care (01) ==
LOC: ER 11:06
DX: L03.313 Cellulitis of chest wall (principal); R07.9 Chest pain, unspecified; E78.00 Pure hypercholesterolemia, unspecified; I10 Essential (primary) hypertension; Z90.49 Acquired absence of other specified parts of digestive tract; I25.2 Old myocardial infarction
CPT/HCPCS: 99283; 82962; A9270 ×2; J3490

== ENCOUNTER 2020-04-27 08:10 | Emergency (ER) | payer MEDICARE, MEDICAID ==
[2020-04-27] MEDS ORDERED: LIDOCAINE 2% VISCOUS SOLN 15 ML UDCUP PO ONE (10:28)
[2020-04-27] MEDS ORDERED: METOCLOPRAMIDE HCL ORAL SOLN 10 MG/10 ML UDCUP PO ONE (10:28)
[2020-04-27] MEDS ORDERED: MAG HYDROX/AL HYDROX/SIMETH SUSP 30 ML UDCUP PO ONE (10:28)
[2020-04-27 10:59] LABS: ABSOLUTE EOSINOPHILS # (AUTO) 0.1 10^3/uL (0.0-0.6); ABSOLUTE LYMPHOCYTES (AUTO) 2.1 10^3/uL (0.5-4.7); ABSOLUTE MONOCYTES (AUTO) 1.1 10^3/uL (0.1-1.4); ABSOLUTE NEUT (AUTO) 8.2 10^3/uL (1.7-8.2); BASOPHILS % (AUTO) 0.4 % (0-2); EOSINOPHILS % (AUTO) 0.6 % (0-6); HEMATOCRIT 43.8 % (36.0-47.0); HEMOGLOBIN 14.4 g/dL (12.0-15.5); LYMPHOCYTES % (AUTO) 18.3 % (13-45); MEAN CORPUSCULAR HEMOGLOBIN 25.5 pg (27.0-33.4); MEAN CORPUSCULAR HGB CONC 32.9 g/dL (32.0-36.0); MEAN CORPUSCULAR VOLUME 77 fl (80-97); MONOCYTES % (AUTO) 9.3 % (3-13); PLATELET COUNT 207 10^3/uL (150-450); RED BLOOD COUNT 5.67 10^6/uL (3.72-5.28); RED CELL DISTRIBUTION WIDTH 15.7 % (11.5-14.0); SEGMENTED NEUTROPHILS % (AUTO) 71.4 % (42-78); TOTAL CELLS COUNTED % (AUTO) 100 %; WHITE BLOOD COUNT 11.4 10^3/uL (4.0-10.5)
--- NOTE | 2020-04-27 11:14 | RADIOLOGY REPORT (SQ) ---
EXAM DESCRIPTION: CT ABD/PELVIS NO ORAL OR IV IMAGES COMPLETED DATE/TIME: 04/27/2020 10:45 am REASON FOR STUDY: pain COMPARISON: CT renal stone 06/27/2018 TECHNIQUE: CT scan of the abdomen and pelvis performed without intravenous or oral contrast. Images reviewed with lung, soft tissue, and bone windows. Reconstructed coronal and sagittal MPR images revi ewed. All images stored on PACS. All CT scanners at this facility use dose modulation, iterative reconstruction, and/or weight based d osing when appropriate to reduce radiation dose to as low as reasonably achievable (ALARA). [facility]: Dose Right [facility]: CareDose [facility]: Dose Right [facility]: Teradose 4D [facility]: Smart ImmunotEGG RADIATION DOSE: CT Rad equipment meets quality standard of care and radiation dose reduction techniq ues were employed. CTDIvol: 6.1 mGy. DLP: 303 mGy-cm.mGy. LIMITATIONS: None. FINDINGS: LOWER CHEST: No significant findings. No nodules or infiltrates. NON-CONTRASTED LIVER, SPLEEN, ADRENALS: Evaluation limited by lack of IV contrast. No identified sign ificant masses. PANCREAS: No masses. No peripancreatic inflammatory changes. GALLBLADDER: Surgically absent. RIGHT KIDNEY AND URETER: No suspicious masses. Assessment limited by lack of IV contrast. No signif icant calcifications. No hydronephrosis or hydroureter. LEFT KIDNEY AND URETER: No suspicious masses. Assessment limited by lack of IV contrast. No signifi cant calcifications. No hydronephrosis or hydroureter. AORTA AND RETROPERITONEUM: Aorto iliac atherosclerosis. No aneurysm. BOWEL AND PERITONEAL CAVITY: No obvious masses or inflammatory changes. No free fluid. APPENDIX: Surgically absent. PELVIS, BLADDER, AND ABDOMINAL WALL:Urinary bladder is normal. No pelvic mass or fluid collection is seen. BONES: Lower lumbar degenerative disc changes. OTHER: No other significant finding. IMPRESSION: No acute finding in the abdomen or pelvis. Findings as described. No significant inter jemima change. COMMENT: Quality ID # [id number]: Final reports with documentation of one or more dose reduction techniques (e.g., Automated exposure control, adjustment of the mA and/or kV according to patient size, use of iterative reconstruction technique) TECHNICAL DOCUMENTATION: JOB ID: [id number] 2010 [employer]- All Rights Reserved Reading location - IP/workstation name: [email or web address]
[2020-04-27 11:23] LABS: ALKALINE PHOSPHATASE 171 U/L (38-126); ANION GAP 12 (5-19); ASPARTATE AMINO TRANSFERASE 31 U/L (14-36); BILIRUBIN,DIRECT 0.1 mg/dL (0.0-0.4); BILIRUBIN,TOTAL 0.4 mg/dL (0.2-1.3); BLOOD UREA NITROGEN 13 mg/dL (7-20); CALCIUM 10.6 mg/dL (8.4-10.2); CARBON DIOXIDE 21 mmol/L (22-30); CHLORIDE 103 mmol/L (98-107); GLUCOSE 109 mg/dL (75-110); POTASSIUM 4.3 mmol/L (3.6-5.0); TOTAL PROTEIN 7.5 g/dL (6.3-8.2)
--- NOTE | 2020-04-27 12:18 | ER Document Report ---
ED General - General Chief Complaint: Upper Abdominal Pain Stated Complaint: UPPER ABDOMINAL PAIN Time Seen by Provider: 04/27/20 09:45 Primary Care Provider: NAZ IVAN FNP-C [Primary Care Provider] - Follow up as needed Mode of Arrival: Ambulatory Information source: Patient TRAVEL OUTSIDE OF THE [place] IN LAST 30 DAYS: No - HPI Notes: Patient states she was lifting some furniture several days ago when she felt sudden pain in the upper central part of her abdomen. She states she denies any shortness of breath. No cough cold or congestion. This pain has been worse with movement and better with rest. It does radiate up into her chest. Is been constant and has been waxing and waning in intensity. She has seen her primary care physician about this problem but she continues to have the pain. She states she does have enough pain medicine at home at this time. No vomiting no diarrhea. - Related Data Allergies/Adverse Reactions: promethazine HCl [From Phenergan] Adverse Reaction (Severe, Verified 04/27/20 09:02) Past Medical History - General Information source: Patient - Social History Smoking Status: Former Smoker Frequency of alcohol use: None Drug Abuse: None Family History: None, Reviewed & Not Pertinent - Past Medical History Cardiac Medical History: Reports: Hx Heart Attack - 1998, Hx Hypercholesterolemia, Hx Hypertension Pulmonary Medical History: Reports: Hx Bronchitis Neurological Medical History: Denies: Hx Seizures Endocrine Medical History: Reports: Hx Diabetes Mellitus Type 2 Renal/ Medical History: Denies: Hx Peritoneal Dialysis Musculoskeletal Medical History: Reports Hx Arthritis, Reports Hx Fibromyalgia, Reports Hx Musculoskeletal Deformity, Reports Hx Musculoskeletal Trauma Psychiatric Medical History: Reports: Hx Attention Deficit Hyperactivity Disorder, Hx Depression Traumatic Medical History: Reports: Hx Fractures Past Surgical History: Reports: Hx Appendectomy, Hx Cardiac Surgery - 1 stent after [place], Hx Section - x2, Hx Cholecystectomy, Hx Orthopedic Surgery - Bilateral foot surgery, total of 5 surgeries - Immunizations Immunizations up to date: Yes Hx Diphtheria, Pertussis, Tetanus Vaccination: Yes Review of Systems - Review of Systems Constitutional: denies: Chills, Fever Cardiovascular: denies: Chest pain, Palpitations Respiratory: denies: Cough, Short of breath -: Yes All other systems reviewed and negative Physical Exam - Vital signs Vitals: Temp Pulse Resp BP Pulse Ox 98.8 F 114 H 20 146/65 H 98 04/27/20 08:14 11/05/20 08:14 04/27/20 08:14 04/27/20 08:14 04/27/20 08:14 Interpretation: Tachycardic - General General appearance: Appears well, Alert - HEENT Head: Normocephalic, Atraumatic Eyes: Normal Pupils: PERRL - Respiratory Respiratory status: No respiratory distress Chest status: Nontender Breath sounds: Normal Chest palpation: Normal - Cardiovascular Rhythm: Tachycardia Heart sounds: Normal auscultation Murmur: No - Abdominal Inspection: Normal Distension: No distension Bowel sounds: Normal Tenderness: Tender - Mildly tender in the epigastric area Organomegaly: No organomegaly - Back Back: Normal, Nontender - Extremities General upper extremity: Normal inspection, Nontender, Normal color, Normal ROM, Normal temperature General lower extremity: Normal inspection, Nontender, Normal color, Normal ROM, Normal temperature, Normal weight bearing. No: Philomena's sign - Neurological Neuro grossly intact: Yes Cognition: Normal Orientation: AAOx4 Micki Coma Scale Eye Opening: Spontaneous Micki Coma Scale Verbal: Oriented [place]icki Coma Scale Motor: Obeys Commands [place] Coma Scale Total: 15 Speech: Normal Motor strength normal: LUE, RUE, LLE, RLE Sensory: Normal - Psychological Associated symptoms: Normal affect, Normal mood - Skin Skin Temperature: Warm Skin Moisture: Dry Skin Color: Normal Course - Re-evaluation Re-evalutation: 04/27/20 12:17 Patient presents somewhat anxious. She was tachycardic at triage but is no longer tachycardic now. She is having epigastric pain that she states she start ed having after lifting some heavy furniture. It does appear to be consistent with a muscle strain. There is no evidence that this is secondary to any type of pulmonary pathology as patient is not short of breath and has no cough. There is no evidence of any type of lower lobe pathology on CT scan. EKG and troponins are unremarkable does not appear to be secondary to cardiac pathology. Abdominal CT scan shows no evidence of acute intra-abdominal pathology that would cause 1 to think this was secondary to intra-abdominal or aortic pathology. It does appear most likely to be secondary to musculoskeletal issues. - Vital Signs Vital signs: Temp Pulse Resp BP Pulse Ox 98.8 F 114 H 20 146/65 H 98 04/27/20 08:14 04/27/20 08:14 04/27/20 08:14 04/27/20 08:14 04/27/20 08:14 - Laboratory Result Diagrams: 04/27/20 10:36 04/27/20 10:36 Laboratory results interpreted by me: 04/27/20 04/27/20 10:36 10:36 WBC 11.4 H RBC 5.67 H MCV 77 L MCH 25.5 L RDW 15.7 H Sodium 135.7 L Carbon Dioxide 21 L Creatinine 0.38 L Calcium 10.6 H Alkaline Phosphatase 171 H - Diagnostic Test Radiology reviewed: Image reviewed, Reports reviewed - EKG Interpretation by Me EKG shows normal: Sinus rhythm Rate: Normal - 96 Rhythm: NSR [place]/QRS: No: Right axis deviation, Left axis deviation Discharge - Discharge Clinical Impression: Abdominal wall strain Qualifiers: Encounter type: initial encounter Qualified Code(s): S39.011A - Strain of muscle, fascia and tendon of abdomen, initial encounter Condition: Stable Disposition: HOME, SELF-CARE Instructions: Abdominal Pain ([facility]) Referrals: NAZ IVAN FNP-C [Primary Care Provider] - Follow up tomorrow
[2020-04-27 12:19] VITALS: BP 138/82
--- NOTE | 2020-04-27 18:09 | EKG REPORT ---
SEVERITY:- ABNORMAL ECG - SINUS RHYTHM LEFT ATRIAL ABNORMALITY : Confirmed by: Petey Huynh MD 27-Apr-2020 18:08:47
== END 2020-04-27 12:23 | disposition home or self-care (01) ==
LOC: ER 08:10
DX: S39.011A Strain of muscle, fascia and tendon of abdomen, initial encounter (principal); X58.XXXA Exposure to other specified factors, initial encounter; E78.00 Pure hypercholesterolemia, unspecified; I10 Essential (primary) hypertension; E11.9 Type 2 diabetes mellitus without complications; I25.2 Old myocardial infarction
CPT/HCPCS: 93005; 99284; 36415; 83690; 85025; 80053; 84484; 74176; 93010; J3490; A9270 ×2